=== PATIENT | female | born 1995 | race Caucasian/White ===

== ENCOUNTER 2023-06-05 10:17 | Outpatient (OUT) | payer OTHER, SELFPAY ==
--- NOTE | 2023-06-05 11:13 | XR_ITS ---
The [address] [address] Patient Name: ELIZABETH WOODS MRN: [id number] date: 1995 Sex: F Assigned Patient Location: [facility] Current Patient Location: [facility] Accession/Order Number: [id number] Exam Date: 06/05/2023 11:08 Report Date: 06/05/2023 12:12 At the request of: CARON CURTIS Procedure: XR chest 2V EXAM: XR chest 2V HISTORY: PRE OP EXAM COMPARISON: None. TECHNIQUE: PA and lateral views of the chest. FINDINGS: The cardiomediastinal silhouette is normal. No focal consolidation is identified. There is no pneumothorax. No pleural effusion is noted. The osseous structures are intact. XR/XR chest 2V IMPRESSION: No acute cardiopulmonary process. Electronically authenticated by: ERIC DE LA TORRE Date: 06/05/2023 12:12
[2023-06-05 11:45] LABS: SARS-CoV-2 Ag NEGATIVE (NEGATIVE)
--- NOTE | 2023-06-05 11:49 | P.GSHP_ITS ---
History of Present Illness History of Present Illness Chief complaint: dysmenorrhea, menorrhagia Narrative: Patient presents for preadmission testing. The patient reports heavy painful menstrual periods. She states this is been ongoing for several years, and she recently had a low hemoglobin due to bleeding. She has not received any blood transfer. Patient states she is a recovering drug addict and she does attend a methadone clinic for daily dosing, her dose is currently being tapered. She states for the past three days she has had a fever, chills, body aches, cough, and shortness of breath. She states she took a home COVID test which was negative. Review of Systems ROS Narrative REVIEW OF SYSTEMS: Negative except as stated in HPI, ten or more systems reviewed. ENT: No sore throat or epistaxis Cardiovascular: No edema, chest pain, palpitations, or activity intolerance Musculoskeletal: No joint pain or swelling Genitourinary: No dysuria or hematuria Neurological: No numbness, tingling, weakness, or headache Psychiatric: No mood changes PFSH PFSH Medical History (Updated 06/05/23 @ 11:54 by Shanti Franz NP) (06/02/23) (06/02/23) Surgical History (Updated 06/05/23 @ 10:45 by Shanti Franz NP) Family History (Updated 06/05/23 @ 10:45 by Shanti Franz NP) Other Family history of colon cancer Family history of diabetes mellitus Family history of heart disease Family history of hypertension Family history of myocardial infarction Family history of stroke Social History (Updated 06/05/23 @ 10:40 by Shanti Franz NP) Within the past year, how often did you have a drink containing alcohol: never Score interpretation: A score less than 3 is consistent with normal alcohol consumption. Do you use any of these nicotine containing products: vaping products Non-prescribed substance use: former substance user Previous occupational history: emergency room doctor/housekeeping Highest level of school completed/degree received: high school graduate Meds Home Medications and Allergies Home Medications Medication Instructions Recorded Confirmed Type methadone 5 mg/5 mL oral solution 29 mg PO DAILY 06/05/23 06/05/23 History Allergies Allergy/AdvReac Type Severity Reaction Status Date / Time bee venom protein (honey bee) Allergy throat Verified 06/05/23 10:37 swelling Penicillins Allergy Verified 06/05/23 10:37 Sulfa (Sulfonamide Allergy Verified 06/05/23 10:37 Antibiotics) Exam Narrative Exam Narrative: Constitutional: Awake, alert, comfortable, well-appearing, nontoxic, interactive, vital signs as charted Head: Normocephalic, atraumatic Eyes: Conjunctiva and lids normal to inspection, pupils normal ENT: Tympanic membranes pearly obando, nonerythematous, noninjected, naris patent, posterior oropharynx clear, oral mucosa moist Neck: Supple, normal appearance, normal range of motion, no meningeal signs, no lymphadenopathy Respiratory: No respiratory distress, breath sounds clear Cardiovascular: Regular rate and rhythm, Subtle systolic murmur noted. Abdomen: Nontender, normal bowel sounds, soft, no CVA tenderness Musculoskeletal: Normal gait, no swelling or edema Skin: No rashes or induration, no lesions, only visible skin inspected Neuro: No neurological deficits, normal sensation Psychiatric: Oriented ?3, normal affect Assessment and Plan Assessment and Plan (1) Cough: (2) Fever: Onset Date: 06/02/23 (3) Pelvic pain: (4) Menorrhagia: (5) Shortness of breath: Onset Date: 06/02/23 (6) Dysmenorrhea: (7) Dyspareunia: (8) Endometriosis: Plan DaVinci assisted laparoscopic hysterectomy, possible exploratory laparotomy, possible bilateral salpingo-oophorectomy, possible cystoscopy scheduled with Dr. Rivera 06/14/2023. COVID test and chest x-ray ordered today at preadmission testing, results pending. Patient refused lab draw today, she states she will come tomorrow as an outpatient. Rapid Urine drug screen to be obtained on surgery admission date. Patient was evaluated by cardiology in December 2022, but she was not cleared.
[2023-06-06 12:44] LABS: INR 1.02; Partial Thromboplastin Time 30.1 sec (22.3-36.2); Prothrombin Time 10.8 sec (9.0-11.6)
[2023-06-06 12:59] LABS: Alanine Aminotransferase 44 U/L (14-59); Albumin Globulin Ratio 1.1; Albumin Level 4.1 g/dL (3.4-5.0); Alkaline Phosphatase 107 U/L (46-116); Anion Gap 12.8; Aspartate Amino Transferase 31 U/L (15-37); BUN Creatinine Ratio 9.3; Bilirubin Direct 0.2 mg/dL (0.0-0.2); Bilirubin Total 0.7 mg/dL (0.2-1.0); Calcium 8.9 mg/dL (8.5-10.1); Chloride 102 mmol/L (98-107); Estimated GFR (African America >60 (>=60); Estimated GFR (Non-African Ame >60 (>=60); Globulin 3.7 g/dL; Glucose 100 mg/dL (74-106); Potassium 3.8 mmol/L (3.5-5.1); Sodium 139 mmol/L (136-145); Total Protein 7.8 g/dL (6.4-8.2)
[2023-06-06 15:28] LABS: SARS-CoV-2 NAA NOT DETECTED (NOT DETECTE)
== END 2023-06-05 10:18 | disposition home or self-care (01) ==
PROVIDERS: Visit Provider Obstetrics & Gynecology
DX: Z01.812 Encounter for preprocedural laboratory examination (principal); Z01.818 Encounter for other preprocedural examination; Z20.822 Contact with and (suspected) exposure to COVID-19; N94.10 Unspecified dyspareunia; N94.6 Dysmenorrhea, unspecified; N92.0 Excessive and frequent menstruation with regular cycle; R10.2 Pelvic and perineal pain; N80.9 Endometriosis, unspecified; F17.290 Nicotine dependence, other tobacco product, uncomplicated; R05.9 Cough, unspecified; R50.9 Fever, unspecified; R06.02 Shortness of breath
CPT/HCPCS: 71046; 80048; 80076; 85610; 85730; 86850; 86900; 86901; 87635; 87811; G0463

== ENCOUNTER 2023-06-15 09:01 | Day surgery (SDC) | payer OTHER, SELFPAY ==
[2023-06-05 11:36] VITALS: BP 108/61; PULSE 79; RESP 16; TEMP 36.6; O2SAT 99; BMI 23.7
--- NOTE | 2023-06-15 09:00 | ECG_ITS ---
The [facility] Test Date: 2023-06-15 Pat Name: ELIZABETH WOODS Department: Room: - Gender: Female Foxer: : 1995 Requested By: CARON CURTIS Order Number: [id number] Reading MD: IVY SANDRA Measurements Intervals [place] Rate: 43 P: 3 ID: 165 QRS: 72 QRSD: 99 T: 65 QT: 517 QTc: 438 Interpretive Statements SINUS BRADYCARDIA No previous ECG available for comparison Electronically Signed On 06-17-2023 14:01:41 EDT by IVY SANDRA
[2023-06-15 09:17] LABS: Basophils Percent Auto 0.5 % (0.2-2.0); Eosinophils Absolute Auto 0.1 10^3/uL (0.0-0.7); Eosinophils Percent Auto 2.7 % (0.9-7.0); Hematocrit 33.5 % (36.0-48.0); Hemoglobin 11.4 g/dL (12.0-16.0); Immature Granulocytes Abs Auto 0.01 10^3/uL (0.00-0.03); Immature Granulocytes Pct Auto 0.2 % (0.0-0.5); Lymphocytes Absolute Auto 1.4 10^3/uL (1.2-3.8); Lymphocytes Percent Auto 30.5 % (20.5-60.0); Mean Corpuscular Hemoglobin 29.2 pg (26.7-34.0); Mean Corpuscular Volume 85.9 fL (81.0-99.0); Mean Platelet Volume 8.8 fL (9.5-13.5); Monocytes Absolute Auto 0.5 10^3/uL (0.3-0.8); Monocytes Percent Auto 10.4 % (1.7-12.0); Neutrophils Absolute Auto 2.5 10^3/uL (1.4-6.5); Neutrophils Percent Auto 55.7 % (43.0-75.0); Platelet Count 165 10^3/uL (150-450); Red Cell Distribution Width 13.8 % (11.0-15.0); White Blood Count 4.4 10^3/uL (4.0-11.0)
[2023-06-15 09:33] LABS: Amphetamine Screen Urine NEGATIVE (NEGATIVE); Barbiturates Screen Urine NEGATIVE (NEGATIVE); Benzodiazepines Screen Urine NEGATIVE (NEGATIVE); Buprenorphine Screen Urine NEGATIVE (NEGATIVE); Cannabinoid Screen Urine POSITIVE (NEGATIVE); Cocaine Screen Urine NEGATIVE (NEGATIVE); Methadone Screen Urine POSITIVE (NEGATIVE); Methamphetamines Screen Urine NEGATIVE (NEGATIVE); Opiate Screen Urine NEGATIVE (NEGATIVE); Oxycodone Screen Urine NEGATIVE (NEGATIVE); Phencyclidine Screen Urine NEGATIVE (NEGATIVE); Tricyclic Antidepressant Urine NEGATIVE (NEGATIVE)
[2023-06-15 09:41] LABS: HCG Quantitative <1 mIU/mL
[2023-06-15 09:44] VITALS: BP 110/51; PULSE 48; RESP 16; TEMP 36.7; O2SAT 98; BMI 23.6
[2023-06-15] MEDS: LACTATED RINGER'S SOLUTION 1,000 ML 50 ML IV (09:55)
[2023-06-15] MEDS: METRONIDAZOLE/SODIUM CHLORIDE 500 MG/100 ML PREMIX IV (09:58)
[2023-06-15] MEDS: CIPROFLOXACIN IN 5 % DEXTROSE 400 MG/200 ML PIGGYBACK IV (11:22)
--- NOTE | 2023-06-15 13:26 | PC.NURSE ---
OR CANCELLED PER ANESTHESIA DUE TO BRADYCARDIA
== END 2023-06-15 13:27 | disposition home or self-care (01) ==
LOC: SURGOUT 09:02
PROVIDERS: Visit Provider Obstetrics & Gynecology
PROC: (CPT 840; principal; 2023-06-15 10:10)
DX: N94.10 Unspecified dyspareunia (principal); Z53.8 Procedure and treatment not carried out for other reasons; R00.1 Bradycardia, unspecified; N94.6 Dysmenorrhea, unspecified; R10.2 Pelvic and perineal pain; F17.290 Nicotine dependence, other tobacco product, uncomplicated; N92.0 Excessive and frequent menstruation with regular cycle; N80.9 Endometriosis, unspecified
CPT/HCPCS: 58571; 36415; 80307; 84702; 85025; 93005

== ENCOUNTER 2023-07-30 11:44 | Outpatient (OUT) | payer OTHER, SELFPAY ==
[2023-07-30 12:55] LABS: Basophils Percent Auto 0.2 % (0.2-2.0); Eosinophils Percent Auto 0.8 % (0.9-7.0); Hematocrit 35.6 % (36.0-48.0); Hemoglobin 12.3 g/dL (12.0-16.0); Immature Granulocytes Abs Auto 0.01 10^3/uL (0.00-0.03); Immature Granulocytes Pct Auto 0.2 % (0.0-0.5); Lymphocytes Absolute Auto 0.9 10^3/uL (1.2-3.8); Lymphocytes Percent Auto 17.9 % (20.5-60.0); Mean Corpuscular HGB Conc 34.6 g/dL (29.9-35.2); Mean Corpuscular Hemoglobin 30.6 pg (26.7-34.0); Mean Corpuscular Volume 88.6 fL (81.0-99.0); Mean Platelet Volume 9.9 fL (9.5-13.5); Monocytes Absolute Auto 0.3 10^3/uL (0.3-0.8); Monocytes Percent Auto 5.4 % (1.7-12.0); Neutrophils Absolute Auto 3.7 10^3/uL (1.4-6.5); Neutrophils Percent Auto 75.5 % (43.0-75.0); Platelet Count 168 10^3/uL (150-450); Red Blood Count 4.02 10^6/uL (4.20-5.40); Red Cell Distribution Width 12.5 % (11.0-15.0); White Blood Count 4.9 10^3/uL (4.0-11.0)
[2023-07-30 13:07] LABS: INR 0.99; Partial Thromboplastin Time 27.9 sec (22.3-36.2); Prothrombin Time 10.5 sec (9.0-11.6)
[2023-07-30 13:42] LABS: Alanine Aminotransferase 21 U/L (14-59); Albumin Globulin Ratio 1.2; Albumin Level 3.7 g/dL (3.4-5.0); Alkaline Phosphatase 60 U/L (46-116); Anion Gap 9.2; Aspartate Amino Transferase 15 U/L (15-37); BUN Creatinine Ratio 13.9; Bilirubin Direct 0.1 mg/dL (0.0-0.2); Bilirubin Total 0.5 mg/dL (0.2-1.0); Calcium 8.4 mg/dL (8.5-10.1); Carbon Dioxide 28.6 mmol/L (21.0-32.0); Chloride 104 mmol/L (98-107); Estimated GFR (African America >60 (>=60); Estimated GFR (Non-African Ame >60 (>=60); Globulin 3.1 g/dL; Glucose 109 mg/dL (74-106); Potassium 3.8 mmol/L (3.5-5.1); Sodium 138 mmol/L (136-145); Total Protein 6.8 g/dL (6.4-8.2)
== END 2023-07-30 11:45 | disposition home or self-care (01) ==
LOC: PST 11:45
PROVIDERS: Visit Provider Obstetrics & Gynecology
DX: Z01.818 Encounter for other preprocedural examination (principal); Z01.812 Encounter for preprocedural laboratory examination; Z88.0 Allergy status to penicillin; Z88.2 Allergy status to sulfonamides; N94.10 Unspecified dyspareunia; N94.6 Dysmenorrhea, unspecified; N80.9 Endometriosis, unspecified; N92.0 Excessive and frequent menstruation with regular cycle; R10.2 Pelvic and perineal pain
CPT/HCPCS: 36415; 80048; 80076; 85025; 85610; 85730; 86850; 86900; 86901

== ENCOUNTER 2023-08-08 06:03 | Day surgery (SDC) | payer OTHER, SELFPAY ==
[2023-07-30 12:11] VITALS: BP 113/67; PULSE 70; RESP 14; TEMP 36.3; O2SAT 99; BMI 23.4
[2023-08-08 06:26] LABS: Basophils Percent Auto 0.4 % (0.2-2.0); Eosinophils Absolute Auto 0.1 10^3/uL (0.0-0.7); Eosinophils Percent Auto 1.8 % (0.9-7.0); Hematocrit 38.2 % (36.0-48.0); Hemoglobin 12.7 g/dL (12.0-16.0); Immature Granulocytes Abs Auto 0.01 10^3/uL (0.00-0.03); Immature Granulocytes Pct Auto 0.2 % (0.0-0.5); Lymphocytes Absolute Auto 1.7 10^3/uL (1.2-3.8); Lymphocytes Percent Auto 31.4 % (20.5-60.0); Mean Corpuscular HGB Conc 33.2 g/dL (29.9-35.2); Mean Corpuscular Hemoglobin 29.7 pg (26.7-34.0); Mean Corpuscular Volume 89.5 fL (81.0-99.0); Mean Platelet Volume 9.7 fL (9.5-13.5); Monocytes Absolute Auto 0.5 10^3/uL (0.3-0.8); Neutrophils Absolute Auto 3.1 10^3/uL (1.4-6.5); Neutrophils Percent Auto 57.2 % (43.0-75.0); Platelet Count 179 10^3/uL (150-450); Red Blood Count 4.27 10^6/uL (4.20-5.40); Red Cell Distribution Width 12.4 % (11.0-15.0); White Blood Count 5.4 10^3/uL (4.0-11.0)
[2023-08-08 06:44] VITALS: BP 107/65; PULSE 51; RESP 16; TEMP 36.2; O2SAT 100
[2023-08-08 06:45] LABS: HCG Quantitative <1 mIU/mL
[2023-08-08 06:48] LABS: Amphetamine Screen Urine POSITIVE (NEGATIVE); Barbiturates Screen Urine NEGATIVE (NEGATIVE); Benzodiazepines Screen Urine NEGATIVE (NEGATIVE); Cannabinoid Screen Urine NEGATIVE (NEGATIVE); Cocaine Screen Urine NEGATIVE (NEGATIVE); Methadone Screen Urine POSITIVE (NEGATIVE); Methamphetamines Screen Urine POSITIVE (NEGATIVE); Opiate Screen Urine NEGATIVE (NEGATIVE); Phencyclidine Screen Urine NEGATIVE (NEGATIVE); Tricyclic Antidepressant Urine NEGATIVE (NEGATIVE)
[2023-08-08 06:49] LABS: Buprenorphine Screen Urine NEGATIVE (NEGATIVE); Oxycodone Screen Urine NEGATIVE (NEGATIVE)
--- NOTE | 2023-08-08 07:26 | PC.NURSE ---
Drug screen positive and Dr. Rivera called and anesthesia aware; no decision made on surgical procedure
--- NOTE | 2023-08-08 07:32 | PC.NURSE ---
Procedure oficially cancelled by Dr. Campos due to positive drug screen
== END 2023-08-08 07:32 ==
PROVIDERS: Visit Provider Obstetrics & Gynecology
DX: Z53.8 Procedure and treatment not carried out for other reasons (principal); N94.10 Unspecified dyspareunia; N94.6 Dysmenorrhea, unspecified; N92.0 Excessive and frequent menstruation with regular cycle; R10.2 Pelvic and perineal pain
CPT/HCPCS: 36415; 80307; 84702; 85025

== ENCOUNTER 2025-08-24 15:00 | Outpatient (OUT) | payer OTHER, SELFPAY ==
--- OUTSIDE RECORDS SUMMARY | 2025-08-24 14:10 | XMS_ITS | Encounter Summary ---
Author Organization [facility] Address [address] [place] [address] Care Team Providers Care Choir Director Name Role Phone Unavailable Primary Care Provider Unavailabl e Reason for Visit * ReasonCommentsRoutine Visit Encounter Details DateTypeDepartmentCare Team (Latest Contact Info)Mgpluwawgjn29/27/2025 2:10 PM EDTRoutine [facility] [address] [place] [address] Swapnil Rivera DO [address] [place] [address] Second trimester ([facility]); 13 weeks gestation of ([facility]) Social History Tobacco UseTypesPacks/DayYears UsedDateSmoking Tobacco: NeverSmokeless Tobacco: NeverAlcohol UseStandard Drinks/WeekCommentsNever0 (1 standard drink = 0.6 oz pure alcohol)Estimated Date of VyknhkbdQtcmwprqVeu15/03/2026Based on UltrasoundSex and Gender InformationValueDate RecordedSex Assigned at BirthNot on fileLegal GimZvuous47/15/2023 8:13 PM EDTGender IdentityNot on fileSexual OrientationNot on filedocumented as of this encounter Last Filed Vital Signs Vital SignReadingTime TakenCommentsBlood Svuejdmb31/5408/24/2025 2:29 PM EDT Pulse--Temperature--Respiratory Rate--Oxygen Saturation--Inhaled Oxygen Concentration--Nchggz96.5 kg (126 lb 12.8 oz)08/24/2025 2:29 PM EDTHeight--Body Mass Index24.7609 1:46 PM EDTdocumented in this encounter Plan of Treatment DateTypeDepartmentCare Team (Latest Contact Info)Kkhhhosiduc04/25/2025 1:30 PM ESTRoutine [facility] [address] [place] [address] Joanne Soto PA [address] [place] [address] documented as of this encounter Procedures Procedure NamePriorityDate/TimeAssociated DiagnosisCommentsPOCT URINALYSIS DCTJTMQXTpcemsi43/27/2025 2:33 PM EDT 13 weeks gestation of ([facility] documented in this encounter Results * (ABNORMAL) POCT urinalysis dipstick manually resulted (08/24/2025 2:33 PM EDT) ComponentValueRef RangeTest MethodAnalysis TimePerformed AtPathologist SignatureColor, UAYellowClarity, UAClearGlucose, UANegativeNegative - 2000(110) ++++ mg/dLBilirubin, UANegativeNegative - 4(70) +++ mg/dLKetones, UA NegativeNegative - 160(16) ++++ mg/dLSpec Grav, UA1.0301 - 1.03Blood, UA NegativeNegative - 50 Shaun/mcLpH, UA5.55 - 9Protein, UATraceNegative - 2000(20) ++++ mg/dLUrobilinogen, UA>=8.00.2 - 12 mg/dLLeukocytes, UANegativeNegative - 500+++ Stefany/mcLNitrite, UANegativeNegative - PositiveSpecimen (Source) Anatomical Location / LateralityCollection Method / VolumeCollection Time Received WpzuEgpjp75/27/2025 2:33 PM EDT Narrative Authorizing ProviderResult TypeResult StatusCorey Miguel DOPOINT OF CARE TEST ENTER/EDIT ORDERABLESFinal Result documented in this encounter Visit Diagnoses Diagnosis Second trimester ([facility]) state, incidental 13 weeks gestation of ([facility]) documented in this encounter
--- OUTSIDE RECORDS SUMMARY | 2025-08-24 15:06 | XMS_ITS | Clinical Summary ---
Author Organization [facility] Address [address] [place] [address] Phone Care Team Providers Care Metal Welder Name Role Phone Joanne López APRN-TIBURCIO Primary Care Provid er Allergies Active AllergyReactionsCriticalityNoted DateCommentsBee Venom Protein (Honey Bee)CfqkchylellQdea41/30/2024enicillinsHeadache,Nausea/zewccund06/30/2024 SulfamethoxazoleHeadache,Rash,Nausea/dhchbxvhAmp15/30/2024 Medications MedicationSigDispense QuantityRefillsLast FilledStart DateEnd DateStatus methadone (Dolophine) 10 mg/mL solution Take by mouth.Active albuterol 90 mcg/actuation aerosol powdr breath activated inhaler Inhale 2 puffs every 4 hours.Active Active Problems ProblemNoted DateDiagnosed DateChest pain11/27/2023ipolar hnzxbkwesf12/30/2024 Anemia affecting eydpxveqi70/30/2024epression affecting , antepartum 11/27/2023epression, major, recurrent, slrzvzal95/30/2024History of heroin abuse11/27/2023Iron deficiency haqkwl5211/27/2023Low back pain11/27/2023Opioid use disorder, moderate, in early remission, on maintenance therapy, dependence 11/27/2023ongenital heart disease, maternal, ydqegixtpu02/30/2024ongenital pulmonary valve qaxczio7811/27/2023onstipation during in third cvasikhtc37/30/9414Ltephgljhhei44/30/2024Generalized anxiety ncrodcjt90/30/2024 Posttraumatic stress oeulsofd97/30/2024rior with congenital cardiac defect, ctzsdamugv55/30/2024ulmonic valve ivoxfoq2111/27/20232391Rzyaytqvd81/30/2024 Shortness of owfuqk9111/27/2023Substance abuse affecting , antepartum 11/27/2023Thrombocytopenia complicating kakmteiwq37/30/2024Tobacco smoking affecting ajjfsnzfw71/30/2024Light tobacco smoker <10 cigarettes per day 11/27/2023ECG yfgbkabs83/30/2024ack pain11/27/2023hronotropic incompetence 11/27/2023Encounter for IUD cppssxsam51/30/2024 Encounters DateTypeDepartmentCare AmgzCeakrywhfal43/07/2025Orders Only [facility] [address] [place] [address] Canelo Allison DO from Last 3 Months Immunizations ImmunizationAdministration DatesNext DueHepatitis B vaccine, 19 yrs and under (RECOMBIVAX, ENGERIX)05/14/2001,09/18/2000,06/08/1999Tdap vaccine, age 7 year and older (BOOSTRIX, ADACEL)01/21/2019,05/26/2017 Family History Medical HistoryRelationNameCommentsHypertensionFathercardiac abnormalityFather HypertensionMothercardiac abnormalityMotherRelationNameStatusCommentsFather Mother Social History Tobacco UseTypesPacks/DayYears UsedDateSmoking Tobacco: Every DayCigarettes Alcohol UseStandard Drinks/WeekCommentsNever0 (1 standard drink = 0.6 oz pure alcohol)CommentsUnknownSex and Gender InformationValueDate RecordedSex Assigned at BirthNot on fileLegal OcsLbpivv27/26/2022 7:39 AM ESTGender Identity Not on fileSexual OrientationNot on file Last Filed Vital Signs Vital SignReadingTime TakenCommentsBlood Udblfvdu649/7003 10:15 AM EDT Aspta2107 10:15 AM EDTTemperature--Respiratory Rate--Oxygen Saturation-- Inhaled Oxygen Concentration--Idnaeu58.1 kg (128 lb)01/15/2023 10:15 AM EDT Ytptre318.9 cm (5' 1 )01/15/2023 10:15 AM EDTBody Mass Index24.19001/15/2023 10:15 AM EDT Plan of Treatment Health MaintenanceDue DateLast DoneCommentsLipid Panel1993Yearly Adult Ynbyyfhr1993MMR Vaccines (1 of 1 - Standard series)1994Pneumococcal Vaccine: Pediatrics and At-Risk Adult Patients (1 of 2 - PCV)2012 HPV/Xhslgh6408/29/2014HPV Vaccines (1 - 3-dose standard series)2020Cervical Cancer Ljvyzgmaa15/21/2022Pap SmearInfluenza Vaccine (#1) 5COVID-19 Vaccine (2 - season)/1DTaP/Tdap/Td Vaccines (3 - Td or Tdap), 05/26/2017Zoster Vaccines (1 of 2)2043Hepatitis B YjnhwfbwOlnmztlrf53/17/2001, 09/18/2000, 06/08/1999HIV TxdvlwtogXjisywpei01/29/2022, 05/04/2021, 12/13/2020, Additional history exists Hepatitis C IxvzdecefUoqgsvzwu35/29/2022, 05/04/2021, 02/26/2019, Additional history existsHIB VaccinesAged OutNo longer eligible based on patient's age to complete this topicHepatitis A VaccinesAged OutNo longer eligible based on patient's age to complete this topicIPV VaccinesAged OutNo longer eligible based on patient's age to complete this topicMeningococcal VaccineAged OutNo longer eligible based on patient's age to complete this topicRotavirus VaccinesAged Out No longer eligible based on patient's age to complete this topic Procedures Procedure NamePriorityDate/TimeAssociated DiagnosisCommentsNON- HIE BHCG QUANT Gbtnzll6307/05/2025 3:25 PM EDT NON- HIE IWASIdaphqn70/07/2025 3:25 PM EDT NON-UH HIE VBFXzeschr80/07/2025 3:25 PM EDT NON-UH HIE CBC W/ AUTO DGCFPvgisog75/07/2025 3:25 PM EDT NON-UH HIE UA WITH CULT SLBBKctdedu26/07/2025 3:25 PM EDT HEPATITIS PANEL, ZVQZKSvgonsz69/29/2022 10:43 AM EDT HIV 1/2 ANTIGEN/ANTIBODY SCREEN WIH REFLEX TO LJZPVMUZAISWGypsbwt70/29/2022 10:43 AM EDT CONVERTED BUSINESS MANAGEMENT ANALYST PBNILVOXArxirwg81/21/2019 12:00 AM EDT from Last 3 Months or Most Recently Relevant to Health Maintenance Results * NON-[facility] HIE UA WITH CULT RFLX (07/05/2025 3:25 PM EDT)ComponentValueRef Range Test MethodAnalysis TimePerformed AtPathologist SignatureNON- HIE UA Spec DescClean CatchOUR LAD[facility] HIE UA ColorLight-Yellow YellowKETTERING HEALTH DAYTONComment:Microscopic readings are only performed on those samples that meet specific criteria set forth by [facility].NON-[facility] HIE UA ClarityClearClearOUR LADY OF [facility] H[facility] UA Spec Grav1.0251.005 - 1.030[facility] UA pH6.55.0 - 9.0[facility] UA ProteinNegativeNegative mg/dLOUR LADY OF [facility] UA Glucose NegativeNegative mg/dLOUR LADY OF [facility] UA KetonesNegative Negative mg/dLOUR LADY OF [facility] UA BiliNegativeNegative mg/dLOUR LADY OF [facility] UA BloodNegativeNegative mg/dL [facility] UA NitriteNegativeNegative mg/dLOUR LADY OF [facility] UA UrobilinogenNegativeNegative mg/dLOUR LADY OF [facility] UA Leuk EstNegativeNegative CD:[id number] HOSPITALS BEACHWOOD MEDICAL CENTERpecimen (Source)Anatomical Location / Laterality Collection Method / VolumeCollection TimeReceived TimeSOUTHWESTERN [facility]ICAL [facility] Lab- Urine 07/05/2025 3:25 PM EDT Narrative Authorizing ProviderResult TypeResult StatusCanelo PASCAL BLOOD ORDERABLES Final ResultPerforming OrganizationAddressCity/State/ZIP CodePhone Number [facility] [address] [place] [address], [place] * (ABNORMAL) NON- HIE CBC w/ Auto Diff (07/05/2025 3:25 PM EDT)ComponentValue Ref RangeTest MethodAnalysis TimePerformed AtPathologist SignatureQUAIL RUN BEHAVIORAL HEALTH-NEW [facility] BEHAVIORAL HEALTH INSTITUTE AT LAS VEGASE WBC5.34.0 - 11.0 E9/LF[facility]ENTERE RBC4.2(L)4.3 - 5.9 E12/LFHOLZER HEALTH SYSTEM HIE HGB12.912.0 - 16.0 gm/dLOHIOHEALTH SHELBY HOSPITALE HCT36.134.0 - 46.0 %[facility] HIE RDW13.410.9 - 14.2 %[facility] HIE MCH30.5 27.0 - 34.0 [facility] HIE MCHC35.831.4 - 36.0 gm/dL [facility] HIE MCV85.480.0 - 100.0 fLOUR LADY OF [facility] HIE MPV7.76.4 - 10.8 [facility] Comment:Peripheral smear review performed.NON- HIE PRZYLAWE647.0150.0 - 500.0 E9/LFWHITE HOSPITALComment:Peripheral smear review performed.NON-UH HIE NEUTRO AUTO70.436.0 - 75.0 %[facility] NON- HIE LYMPH AUTO18.514.0 - 50.0 %[facility] HIE MONO AUTO9.54.0 - 14.0 %[facility] HIE EOS AUTO1.10.0 - 8.0 %[facility] HIE BASOPHIL AUTO0.50.0 - 2.0 %[facility] HIE NEUTRO ABSOLUTE3.72.0 - 7.5 E9/LFHOLZER [facility]ALTH SYSTEM HIE LYMPH ABSOLUTE1.01.0 - 4.0 E9/LFH[facility] HIE MONO ABSOLUTE0.50.2 - 1.0 E9/LFTRUMBULL [facility]ORIAL [facility] HIE EOS ABSOLUTE0.10.0 - 0.5 E9/LFH[facility]ZER [facility]ALTH SYSTEM HIE BASOPHIL ABSOLUTE0.00.0 - 0.2 E9/LFTOGUS VA MEDICAL CENTERpecimen (Source) Anatomical Location / LateralityCollection Method / VolumeCollection Time Received TimeSOUTHWESTERN MEDICAL [facility] Lab- Blood07/05/2025 3:25 PM EDT Narrative Authorizing ProviderResult TypeResult StatusCanelo DELARSOA BLOOD ORDERABLES Final ResultPerforming OrganizationAddressCity/State/ZIP CodePhone Number [facility] [address] [place] [address], * (ABNORMAL) NON- HIE BMP (07/05/2025 3:25 PM EDT)ComponentValueRef RangeTest MethodAnalysis TimePerformed AtPathologist SignatureFRANCISCAN HEALTH MOORESVILLEE GLUCOSE LGA2001 - 199 mg/dLOUR LADY OF [facility] HIE CVW697 - 21 mg/dLOUR [facility] OF [facility] HIE CREATININE0.70.5 - 1.3 mg/dLOHIOHEALTH SHELBY HOSPITALE BUN/CREAT XSHVP6615 - 20 No UnitsKETTERING HEALTH DAYTON [address] HIE CALCIUM LVL9.58.9 - 11.1 mg/dLOUR LADY OF [facility] HIE SODIUM DYM048(L)135 - 145 mmol/LFHOLZER HEALTH SYSTEM HIE POTASSIUM LVL4.33.5 - 5.3 mmol/LFHOLZER HEALTH SYSTEM HIE CHLORIDE 758022 - 111 mmol/LFHOLZER HEALTH SYSTEM HIE WR29617 - 31 mmol/L [facility] AGAP96 - 16 mEq/LF[facility] CENTERpecimen (Source)Anatomical Location / LateralityCollection Method / VolumeCollection TimeReceived TimeSOUTHWESTERN [facility] Lab- Blood07/05/2025 3:25 PM EDT Narrative Authorizing ProviderResult TypeResult StatusCanelo PASCAL BLOOD ORDERABLES Final ResultPerforming OrganizationAddressCity/State/ZIP CodePhone Number [address] [address], [place] * NON-[facility] HIE eGFR (07/05/2025 3:25 PM EDT)ComponentValueRef RangeTest Method Analysis TimePerformed AtPathologist SignatureNON- HIE AALC819>=59 mL/min/1.73 x0JDEZZBUNIVERSITY HOSPITALS BEACHWOOD MEDICAL CENTERpecimen (Source)Anatomical Location / LateralityCollection Method / VolumeCollection TimeReceived TimeSOUTHWESTERN [facility] Lab Blood07/05/2025 3:25 PM EDT Narrative Authorizing ProviderResult TypeResult StatusCanelo PASCAL BLOOD ORDERABLES Final ResultPerforming OrganizationAddressCity/State/ZIP CodePhone Number [address] [address], [place] * (ABNORMAL) NON-UH HIE BhCG Quant (07/05/2025 3:25 PM EDT)ComponentValueRef RangeTest MethodAnalysis TimePerformed AtPathologist SignatureNON- HIE BETA HCG QNT79,656(H)1 - 3 mIU/mLKETTERING HEALTH DAYTONComment:'F NON < 1 - 3'' 0.2 - 1 WEEK = 5 TO 50'' 1 - 2 WEEKS = 50 - 500'' 2 - 3 WEEKS = 100 - 5000'' 3 - 4 WEEKS = 500 - 39243'' 4 - 5 WEEKS = 1000 - 64242'' 5 - 6 WEEKS = 44795 - 529061'' 6 - 8 WEEKS = 52053 - 880668'' 8 - 12 WEEKS = 66177 - 595849'Specimen (Source)Anatomical Location / LateralityCollection Method / VolumeCollection TimeReceived TimeSOUTHWESTERN MEDICAL [facility] Lab- Blood07/05/2025 3:25 PM EDT Narrative Authorizing ProviderResult TypeResult StatusCanelo PASCAL BLOOD ORDERABLES Final ResultPerforming OrganizationAddressCity/State/ZIP CodePhone Number [facility] [address] [place] [address], * Hepatitis Panel, Acute (01/24/2022 10:43 AM EDT)ComponentValueRef RangeTest MethodAnalysis TimePerformed AtPathologist SignatureHep A IgMNONREACTIVE NONREACTIVELEHIGH VALLEY HOSPITAL - SCHUYLKILL [facility] LABComment: Biotin interference may cause falsely decreased results. Patients taking a Biotin dose of up to 5 mg/day should refrain from taking Biotin for 24 hours before sample collection. Providers may contact their local laboratory for further information. Hep B Core IgMNONREACTIVENONUNIVERSITY OF IOWA HOSPITALS AND CLINICS LABComment: Results from patients taking biotin supplements or receiving high-dose biotin therapy should be interpreted with caution due to possible interference with this test. Providers may contact their local laboratory for further information. Hepatitis B Surface AgNONREACTIVENONUNIVERSITY OF IOWA HOSPITALS AND CLINICS LABComment: Biotin interference may cause falsely decreased results. Patients taking a Biotin dose of up to 5 mg/day should refrain from taking Biotin for 24 hours before sample collection. Providers may contact their local laboratory for further information. Hepatitis C AbNONREACTIVENONRECAROMONT HEALTH LABComment: Results from patients taking biotin supplements or receiving high-dose biotin therapy should be interpreted with caution due to possible interference with this test. Providers may contact their local laboratory for further information. Specimen (Source)Anatomical Location / LateralityCollection Method / Volume Collection TimeReceived Time01/24/2022 10:43 AM EDT01/24/2022 8:29 PM EDT Narrative Authorizing ProviderResult TypeResult StatusTomer Jeter DISPATCHER CLERK-CNPLAB BLOOD ORDERABLESFinal ResultPerforming OrganizationAddressCity/State/ZIP CodePhone Number [facility] [address] [facility] [id number] [place] [address] * HIV 1/2 Antigen/Antibody Screen with Reflex to Confirmation (01/24/2022 10:43 AM EDT)ComponentValueRef RangeTest MethodAnalysis TimePerformed AtPathologist SignatureHIV 1 and 2 ScreenNONREACTIVENONUNIVERSITY OF IOWA HOSPITALS AND CLINICS LABComment: HIV Ag/Ab screen is performed using the Siemens InvestLab HIV Ag/Ab Combo assay which detects the presence of HIV p24 antigen as well as antibodies to HIV-1 (Group M and O) and HIV-2. . No laboratory evidence of HIV infection. If acute HIV infection is suspected, consider testing for HIV RNA by PCR (viral load). Specimen (Source)Anatomical Location / LateralityCollection Method / Volume Collection TimeReceived Time01/24/2022 10:43 AM EDT01/24/2022 2:34 PM EDT Narrative Authorizing ProviderResult TypeResult StatusVincent E Hawaen DISPATCHER CLERK-CNPLAB BLOOD ORDERABLESFinal ResultPerforming OrganizationAddressCity/State/ZIP CodePhone Number [facility] [id number] [place] [address] * CONVERTED BUSINESS MANAGEMENT ANALYST CYTOLOGY (03/18/2019 12:00 AM EDT)ComponentValueRef RangeTest MethodAnalysis TimePerformed AtPathologist SignaturePathology Report ? Date of Procedure: ??03/18/2019 ? Pathologist: [facility], Cytology Date Reported: 03/28/2019 Date Received: ??03/18/2019 Submitting Physician: COLTON REEVES M.D ? FINAL CYTOLOGICAL INTERPRETATION A. ??THINPREP PAP CERVICAL Reflex - Ascus only: ? Specimen adequacy: ? SATISFACTORY FOR EVALUATION. ? Quality Indicator: Endocervical/transformation zone component is present. ? Quality Indicator: Partially obscuring blood. ? General Categorization: ? NEGATIVE FOR INTRAEPITHELIAL LESION OR MALIGNANCY. ? Descriptive Interpretation: ? SHIFT IN VAGINAL HOMERO SUGGESTIVE OF BACTERIAL VAGINOSIS. ? Ancillary Testing: ? Specimen does not meet the requisition-stated criteria for HPV testing. See Pap test interpretation above. ? This specimen has been analyzed by the curated.byp Imaging System ([employer] an automated imaging and review system, which assists the laboratory in evaluating cells on ThinPrep Pap tests. Following automated imaging, selected cutler from every slide were reviewed by a autism specialist and/or pathologist. Electronically Signed Out By [facility], Cytology//NKM By the signature on this report, the individual or group listed as making the Final Interpretation/Diagnosis certifies that they have reviewed this case. Educational Note: Cervical cytology is a screening procedure primarily for squamous cancers and precursors and has associated false-negative and false-positive results as evidenced by published data. ??Your patient's test should be interpreted in this context, together with patient's history and clinical findings. ??Regular sampling and follow-up of unexplained clinical signs and symptoms are recommended to minimize false negative results. Clinical History Date of Last Menstrual Period: ? PPV Other Clinical Conditions: HPV ??Reflex for ASC-US only - Exclude HPV Genotype Source of Specimen A: THINPREP PAP CERVICAL Reflex - Ascus only [facility] Department of Pathology [id number] [place] [address] COPATHCONVERTED FINAL DIAGNOSISA. ??THINPREP PAP CERVICAL Reflex - Ascus only: ? Specimen adequacy: ? SATISFACTORY FOR EVALUATION. ? Quality Indicator: Endocervical/transformation zone component is present. ? Quality Indicator: Partially obscuring blood. ? General Categorization: ? NEGATIVE FOR INTRAEPITHELIAL LESION OR MALIGNANCY. ? Descriptive Interpretation: ? SHIFT IN VAGINAL HOMERO SUGGESTIVE OF BACTERIAL VAGINOSIS. ? Ancillary Testing: ? Specimen does not meet the requisition-stated criteria for HPV testing. See Pap test interpretation above. ? [facility] COPATHCONVERTED DIAGNOSIS COMMENTThis specimen has been analyzed by the PandabusPrep Imaging System ([employer] an automated imaging and review system, which assists the laboratory in evaluating cells on ThinPrep Pap tests. Following automated imaging, selected cutler from every slide were reviewed by a autism specialist and/or pathologist. [facility] [address] COPATHCONVERTED FINAL REPORT PDF LINK TO COPY AND PASTE \[id number] VALLEY [facility] COPATHSpecimen (Source) Anatomical Location / LateralityCollection Method / VolumeCollection Time Received TimeTPP CERVICAL - Exclude Ypvqgvsc98 1:33 PM EDT Narrative Authorizing ProviderResult TypeResult StatusLugenesis Reeves MDLAB CYTOLOGY ORDERABLESFinal ResultPerforming OrganizationAddressCity/State/ZIP CodePhone Number [facility] [address] [address] COPATH [address] [place] [address] from Last 3 Months or Most Recently Relevant to Health Maintenance Insurance Care Teams Team MemberRelationshipSpecialtyStart DateEnd Date Joanne López, DISPATCHER CLERK-RAILROAD CAR CHECKER PCP - General01/15/23
--- OUTSIDE RECORDS SUMMARY | 2025-08-24 15:06 | XMS_ITS | Clinical Summary ---
Author Organization [facility] Address [facility], [address] [place] [address] Care Team Providers Care Offset Plate Preparation Supervisor Name Role Phone Unavailable Primary Care Provider Unavailabl e Allergies Active AllergyReactionsCriticalityNoted DateCommentsBee VenomRashMedium 01/12/2017Clindamycin/Rlzoujwztz22/06/6727Qwzqnwklcr17/31/2018Penicillin GOther (See Comments)02/04/2016Sulfa AntibioticsOther (See Comments)02/04/2016 Medications MedicationSigDispense QuantityRefillsLast FilledStart DateEnd DateStatus MV-Min-Fe Fum-FA-DHA ( 1 PO) Take by mouthActive azithromycin (ZITHROMAX) 250 MG tablet Indications:Bilateral otitis media, unspecified chronicity, unspecified otitis media typeTake 2 tabs (500 mg) on Day 1, and take 1 tab (250 mg) on days 2 through 5. 1 packet 02/09/2017Active ibuprofen (ADVIL;MOTRIN) 600 MG tablet Take 1 tablet by mouth every 8 hours as needed for Pain 30 tablet 11/06/2017Active ondansetron (ZOFRAN ODT) 4 MG disintegrating tablet Take 1 tablet by mouth every 8 hours as needed for Nausea 20 tablet 11/06/2017Active QUEtiapine (SEROQUEL) 50 MG tablet Take 50 mg by mouth 2 times dailyActive PARoxetine (PAXIL) 40 MG tablet Take 40 mg by mouth every morningActive baclofen (LIORESAL) 20 MG tablet Take 40 mg by mouth 3 times dailyActive dicyclomine (BENTYL) 10 MG capsule Take 10 mg by mouth 4 times daily (before meals and nightly)Active ketorolac (TORADOL) 10 MG tablet Take 1 tablet by mouth every 6 hours as needed for Pain 20 tablet 06/05/2019Active lidocaine viscous hcl (XYLOCAINE) 2 % SOLN solution Take 15 mLs by mouth as needed for Irritation 100 mL 06/05/2019Active Active Problems No known active problems Social History Tobacco UseTypesPacks/DayYears UsedDateSmoking Tobacco: Every DayCigarettes Smokeless Tobacco: Never Tobacco Cessation:Ready to Q uit: No Alcohol UseStandard Drinks/WeekCommentsNo0 (1 standard drink = 0.6 oz pure alcohol)CommentsNoSex and Gender InformationValueDate RecordedSex Assigned at BirthNot on fileLegal JyfQtqqco02/12/2013 3:28 AM ESTGender Identity Not on fileSexual OrientationNot on file Last Filed Vital Signs Vital SignReadingTime TakenCommentsBlood Kuchnfzn080/6008 10:30 AM EDT Ljpdf225106/05/2019 10:30 AM QWOLfsloawapne49.9 ??C (98.5 ??F)06/05/2019 10:30 AM EDTRespiratory Bjqs9670 10:30 AM EDTOxygen Hchyqdvieb23%06/05/2019 10:30 AM EDTInhaled Oxygen Concentration--Vvdgve49.7 kg (125 lb)06/05/2019 10:30 AM QJEIqenbj693.5 cm (5' 2 )06/05/2019 10:30 AM EDTBody Mass Index22.8606/05/2019 10:30 AM EDT Plan of Treatment Not on file Insurance * Guarantor: [employer] TypeRelation to PatientDate of PhoneBilling AddressLabette Health/ZaaytxChmd[address] [phone]
--- OUTSIDE RECORDS SUMMARY | 2025-08-24 15:06 | XMS_ITS | Encounter Summary ---
Author Organization [facility] Address [address] [place] [address] Care Team Providers Care Mushroom Spawn Maker Name Role Phone Unavailable Primary Care Provider Unavailabl e Encounter Details DateTypeDepartmentCare Team (Latest Contact Info)Gopyyvrzfiv36/27/2025amboo flowsheet NOMNancy FRANCIS [address] [place] [address] Swapnil Rivera DO [address] [facility] [facility] [address] Dash Sanchez, [facility] Social History Tobacco UseTypesPacks/DayYears UsedDateSmoking Tobacco: NeverSmokeless Tobacco: NeverAlcohol UseStandard Drinks/WeekCommentsNever0 (1 standard drink = 0.6 oz pure alcohol)Estimated Date of TpsraqimZcjqrgisCsa22/03/2026ased on UltrasoundSex and Gender InformationValueDate RecordedSex Assigned at BirthNot on fileLegal QjyItmtnp30/15/2023 8:13 PM EDTGender IdentityNot on fileSexual OrientationNot on filedocumented as of this encounter Plan of Treatment DateTypeDepartmentCare Team (Latest Contact Info)Rvofikgnxzy08/25/2025 1:30 PM ESTRoutine NOMNancy FRANCIS [address] [place] [address] Joanne Soto PA [address] [place], [facility] documented as of this encounter Visit Diagnoses Not on filedocumented in this encounter
--- OUTSIDE RECORDS SUMMARY | 2025-08-24 15:06 | XMS_ITS | Clinical Summary ---
Author Organization [facility] Address [address] [place] [id number] Care Team Providers Care Comparative Sociology Professor Name Role Phone Unavailable Primary Care Provider Unavailabl e Allergies Active AllergyReactionsCriticalityNoted LlcbKdjslekwVmebabppjjTbffnph36/08/2016 Sulfa (Sulfonamide Antibiotics)Hvoychs4902/04/2016 Medications No known medications Active Problems No known active problems Family History Medical HistoryRelationCommentsHeartFatherMI around age 50HypertensionFather HypertensionMotherRelationStatusCommentsFatherMother Social History Tobacco UseTypesPacks/DayYears UsedDateSmoking Tobacco: Every DayCigarettes0.511 Alcohol UseStandard Drinks/WeekCommentsYes6 (1 standard drink = 0.6 oz pure alcohol)[facility] UtilitiesAnswerDate RecordedIn the past 12 months has the [employer], gas, oil, or water [place] threatened to shut off services in your home?No 12/14/2023Social Connection and Isolation PanelAnswerDate RecordedIn a typical week, how many times do you talk on the phone with family, friends, or neighbors?More than three times a week12/14/2023How often do you get together with friends or relatives?More than three times a week12/14/2023How often do you attend mu-ism or mormonism services?Patient ybgdewwy25/16/2024Do you belong to any clubs or organizations such as mu-ism groups, unions, fraternal or athletic groups, or school groups?No12/14/2023How often do you attend meetings of the clubs or organizations you belong to?Patient hkpokfrj47/16/2024Are you , , , , never , or living with a partner?Patient qxvfesie29/16/2024UDIT-CAnswerDate RecordedQ1: How often do you have a drink containing alcohol?Patient scfgopal43/16/2024Q2: How many drinks containing alcohol do you have on a typical day when you are drinking?Patient does not drink12/14/2023Q3: How often do you have six or more drinks on one occasion? Patient ldvgtsku27/16/2024Overall Financial Resource Strain (CARDIA)AnswerDate RecordedHow hard is it for you to pay for the very basics like food, housing, medical care, and heating?Patient zqqocfuq62/16/2024[facility] [place] [facility] - Occupational Stress QuestionnaireAnswerDate RecordedDo you feel stress - tense, restless, nervous, or anxious, or unable to sleep at night because yourmind is troubled all the time - these days?Rather much12/14/2023 Exercise Vital SignAnswerDate RecordedOn average, how many days per week do you engage in moderate to strenuous exercise (like a brisk walk)?2 days12/14/2023On average, how many minutes do you engage in exercise at this level?10 min 12/14/2023Hunger Vital SignAnswerDate RecordedWithin the past 12 months, you worried that your food would run out before you got the money to buymore.Never true12/14/2023Within the past 12 months, the food you bought just didn't last and you didn't have money to get more.Never true12/14/2023RAPARE - TransportationAnswerDate RecordedIn the past 12 months, has lack of transportation kept you from medical appointments or from getting medications? Yes12/14/2023In the past 12 months, has lack of transportation kept you from meetings, work, or from getting things needed for daily living?Yes12/14/2023 Housing Stability Vital SignAnswerDate RecordedIn the last 12 months, was there a time when you were not able to pay the mortgage or rent on time?No12/14/2023In the last 12 months, how many places have you lived?In the last 12 months, was there a time when you did not have a steady place to sleep or slept in [facility] (including now)?No4CommentsUnknownSex and Gender InformationValueDate RecordedSex Assigned at WolcsWmthlc70/16/2024 4:08 PM EDT Legal VqcAlfpjs09/02/2012 8:33 AM ESTGender JbvafluwWikdve39/16/2024 4:08 PM EDT Sexual AeezkhjkvdhHhuhytkc47/16/2024 4:08 PM EDTOccupationIndustryJob Start Date Job End DateUnemployedNot on fileNot on fileNot on file Last Filed Vital Signs Vital SignReadingTime TakenCommentsBlood Kiitpgpl825/7608/22/2016 10:09 AM EDT Dfzqb306708/22/2016 10:09 AM EDTTemperature--Respiratory Enfo1816 10:09 AM EDTOxygen Pzfnhyenwm10%08/22/2016 10:09 AM EDTInhaled Oxygen Concentration-- Wpwnth34.4 kg (131 lb)08/22/2016 10:09 AM WOMOmllvk976 cm (5' 3 )08/22/2016 10:09 AM EDTBody Mass Index23.211 10:09 AM EDT Plan of Treatment Health MaintenanceDue DateLast DoneCommentsAnxiety Ryvvrsali43/01/2011Depression Zcpjqmatd79/01/2011HIV Fmbphimwt01/01/2011Pneumococcal Vaccine (1 of 2 - PCV) 2012Cervical Cancer Gllexwwcq45/01/2014HPV Vaccine (1 - 3-dose SCDM series)2020Covid-19 Vaccine (2 - 2024- season) Influenza Vaccine (#1)2025DTaP,Tdap,Td Vaccine (3 - Td or Tdap)01/21/2029 01/21/2019, 05/26/2017Hepatitis B EtowxxgNmqvhbceo22/17/2001, 09/18/2000, 06/08/1999Hepatitis C WbchrfmnaKpblcgiyx34/01/2019, 01/16/2019 Insurance
--- OUTSIDE RECORDS SUMMARY | 2025-08-24 15:06 | XMS_ITS | Clinical Summary ---
Author Organization [facility] Address [address] [place] [address] Care Team Providers Care Housekeeper/Laundry Assistant Name Role Phone Unavailable Primary Care Provider Unavailabl e Allergies Active AllergyReactionsCriticalityNoted DateCommentsBee VenomAnaphylaxis,Rash, BmbeorlxJmus23/17/2017 Other Reaction(s): hives Clindamycin/Dqblkikqik62/06/4532OhidwctpnzbJfptuizv18/08/2016 Other Reaction(s): hives, Nausea/vomiting, Other (See Comments), Unknown Other Reaction(s): Unknown Other reaction(s): Unknown Sulfa AntibioticsHeadache,TevnXfu1902/04/2016 Other Reaction(s): Nausea/vomiting, Other (see comments), Other (See Comments), Unknown, upset stomach Medications MedicationSigDispense QuantityRefillsLast FilledStart DateEnd DateStatus methadone (Methadose) 40 MG dispersible tablet Take 69 mg by mouth 1 (one) time each day at the same time.Active albuterol (ProAir RespiClick) 90 mcg/act breath-activated inhaler Inhale 2 puffs every 4 (four) hoursActive Sublocade 300 MG/1.5ML injection 01/16/2024ctive Buprenorphine HCl-Naloxone HCl (Suboxone) 8-2 MG SL film 01/16/2024ctive buprenorphine-naloxone (Suboxone) 2-0.5 MG per sublingual film TAKE 2 FILMS SUBLINGUALLY TWICE A DAY FOR 3 DAYS THEN 2 FILMS IN THE MORNING AND 1 FILM IN THE EVENING ON DAY 4, THEN 1 FILM TWICE A DAY ON11/10/2023ctive cetirizine (ZyrTEC) 10 MG tablet TAKE 1 TABLET BY MOUTH EVERY DAY for 7 days12/14/2023ctive cloNIDine (Catapres) 0.1 MG tablet 01/16/2024ctive cyclobenzaprine (Flexeril) 10 MG tablet Take 10 mg by mouth every 8 (eight) hours if xzhudw9711/09/2023ctive dicyclomine (Bentyl) 20 MG tablet Take 20 mg by mouth every 8 (eight) hours if kkrtjz7711/09/2023ctive famotidine (Pepcid) 20 MG tablet Take 20 mg by mouth in the morning and 20 mg before bedtime.12/14/2023ctive fluticasone (Flonase) 50 MCG/ACT nasal spray INHALE 2 PUFFS nasally DAILY IN EACH NOSTRILActive gabapentin (Neurontin) 300 MG capsule Take 300 mg by mouth in the morning and 300 mg in the evening and 300 mg before bedtime.11/09/2023ctive hydrOXYzine pamoate (Vistaril) 25 MG capsule 01/14/2024ctive ibuprofen 600 MG tablet 01/16/2024ctive Melatonin 10 MG capsule Take 1 capsule by mouth as needed at quwfepr2811/09/2023ctive methocarbamol (Robaxin) 750 MG tablet 01/16/2024ctive naloxone (Narcan) 4 mg/0.1 mL nasal spray USE DIRECTED TO REVERSE SUSPECTED OR CONFIRMED OPIOID OVERDOSE AND CALL 911! 11/09/2023ctive traMADol (Ultram) 50 MG tablet 01/14/2024ctive traZODone (Desyrel) 50 MG tablet 01/23/2024ctive Chlorhexidine Gluconate (Hibiclens) 4 % solution Indications:Rash and other nonspecific skin eruptionApply 1 Application topically Daily From the neck down 118 mL 11004/03/2024ctive Active Problems Estimated Date of ZjfuvkulRswsjxhaFsz97/03/2026ased on Ultrasound No known active problems Encounters DateTypeDepartmentCare YxloKodfqtlvunz60/27/2025 2:10 PM EDTRoutine NOMS Laura FRANCIS [address] [place] [address] Swapnil Rivera, DO Second trimester ([facility]); 13 weeks gestation of ([facility])08/24/2025amboo flowsheet NOMNancy FRANCIS [address] [place] [id number] Swapnil Rivera DO 07/23/2025 1:00 PM EDTInitial NOMNancy Mendez [facility] [place] [address] [place]: 8w4d07/23/2025 12:30 PM EDTAncillary Procedure NOMNancy Mendez [facility] [place] [place] [address] Missed menses; Positive urine test ([facility])06/22/2025Telephone ELENI FRANCIS [address] [place] [address] Zhane Thornton MA from Last 3 Months Family History Medical HistoryRelationNameCommentsHeart diseaseFatherHeart diseaseMaternal GrandmotherHeart diseaseMotherRelationNameStatusCommentsFatherMaternal GrandmotherMother Social History Tobacco UseTypesPacks/DayYears UsedDateSmoking Tobacco: NeverSmokeless Tobacco: Never Tobacco Cessation:Counseling Given: Not Answered Alcohol UseStandard Drinks/WeekCommentsNever0 (1 standard drink = 0.6 oz pure alcohol)Estimated Date of EuuxymodFokubuqeNlw33/03/2026ased on UltrasoundSex and Gender InformationValueDate RecordedSex Assigned at BirthNot on fileLegal YsdUicnvq45/15/2023 8:13 PM EDTGender IdentityNot on fileSexual OrientationNot on file Last Filed Vital Signs Vital SignReadingTime TakenCommentsBlood Tvlywyev68/5410 2:29 PM EDT Pulse--Temperature--Respiratory Rate--Oxygen Saturation--Inhaled Oxygen Concentration--Bvlxzl75.5 kg (126 lb 12.8 oz)08/24/2025 2:29 PM LNVObvwjc828.4 cm (5')07/10/2023 1:46 PM EDTBody Mass Index24.7609 1:46 PM EDT Plan of Treatment DateTypeDepartmentCare Team (Latest Contact Info)Azhegrqajkh39/25/2025 1:30 PM ESTRoutine NOMS Laura FRANCIS [address] [place] [id number] Joanne Soto PA [address] [address] Health MaintenanceDue DateLast DoneCommentsMMR Vaccines (1 of 1 - Standard series)1994DTaP/Tdap/Td Vaccines (1 - Tdap)2000Varicella Vaccines (1 of 2 - 13+ 2-dose series)2006Hepatitis B Vaccines (1 of 3 - 19+ 3-dose series)2012HPV Vaccines (1 - 3-dose SCDM series)2020HPV/Cotest 2023ervical Cancer Ikzbgsllg04/20/2025Pap Smear06/17//2COVID- 19 Vaccine ( - season)/03/2021Influenza Vaccine (#1) 2025HIB VaccinesAged OutNo longer eligible based on patient's age to complete this topicHepatitis A VaccinesAged OutNo longer eligible based on patient's age to complete this topicIPV VaccinesAged OutNo longer eligible based on patient's age to complete this topicMeningococcal B VaccineAged OutNo longer eligible based on patient's age to complete this topicMeningococcal VaccineAged OutNo longer eligible based on patient's age to complete this topicPneumococcal Vaccine: Pediatrics (0 to 5 Years) and At-Risk Patients (6 to 64 Years)Aged Out No longer eligible based on patient's age to complete this topicRotavirus VaccinesAged OutNo longer eligible based on patient's age to complete this topic Procedures Procedure NamePriorityDate/TimeAssociated DiagnosisCommentsPOCT URINALYSIS NVUJTPVUJchjamc75/27/2025 2:33 PM EDT 13 weeks gestation of ([facility]) POCT URINALYSIS YDJLDPXZWvccgqt10/25/2025 1:56 PM EDT Missed menses POCT , BHJBYXqxmoqy73/25/2025 1:55 PM EDT Missed menses US OB EXJZTZJZSRHJFkujdvi51/25/2025 12:53 PM EDT Missed menses Positive urine test ([facility]) PAP PBBMLXkppwlt39/20/2022 12:00 AM EDTfrom Last 3 Months or Most Recently Relevant to Health Maintenance Results * (ABNORMAL) POCT urinalysis dipstick manually resulted (08/24/2025 2:33 PM EDT) Only the most recent of2 resultswithin the time period is included. ComponentValueRef RangeTest MethodAnalysis TimePerformed AtPathologist Signature Color, UAYellowClarity, UAClearGlucose, UANegativeNegative - 2000(110) ++++ mg/dLBilirubin, UANegativeNegative - 4(70) +++ mg/dLKetones, UANegativeNegative - 160(16) ++++ mg/dLSpec Grav, UA1.0301 - 1.03Blood, UANegativeNegative - 50 Shaun/mcLpH, UA5.55 - 9Protein, UATraceNegative - 2000(20) ++++ mg/dLUrobilinogen, UA>=8.00.2 - 12 mg/dLLeukocytes, UANegativeNegative - 500+++ Stefany/mcLNitrite, UA NegativeNegative - PositiveSpecimen (Source)Anatomical Location / Laterality Collection Method / VolumeCollection TimeReceived ChchGdigs21/27/2025 2:33 PM EDT Narrative Authorizing ProviderResult TypeResult StatusCorey Miguel DOPOINT OF CARE TEST ENTER/EDIT ORDERABLESFinal Result * (ABNORMAL) POCT , urine manually resulted (07/23/2025 1:55 PM EDT) ComponentValueRef RangeTest MethodAnalysis TimePerformed AtPathologist SignaturePreg Test, UrPositiveNegativeSpecimen (Source)Anatomical Location / LateralityCollection Method / VolumeCollection TimeReceived TimeUrine 07/23/2025 1:55 PM EDT Narrative Authorizing ProviderResult TypeResult StatusCorey Miguel DOPOINT OF CARE TEST ENTER/EDIT ORDERABLESFinal Result * US OB transvaginal (07/23/2025 12:53 PM EDT)Anatomical RegionLaterality ModalityBodyUltrasoundSpecimen (Source)Anatomical Location / Laterality Collection Method / VolumeCollection TimeReceived Time07/23/2025 2:38 PM EDT Impressions 07/23/2025 3:05 PM EDT Findings consistent with a live intrauterine gestation, current sonographic age of 8 weeks and4 days resulting in an estimated date of delivery of February 28, 2026. TRANSCRIBED BY: ? ELECTRONICALLY SIGNED BY: Florian Dwyer MD Narrative 07/23/2025 3:05 PM EDT FINDINGS: A single intrauterine gestational sac is present. Small subchorionic fluid collection not associated with the closed cervical os, cervical length 4.7 cm. ?? A single pole is present. Normal heart rate at 169 beats per minute. ??Yolk sac also is seen. ?? Current sonographic age is 8 weeks and 4 days based on the crown-rump length measurement of 2.0 cm. ??Based on this age, current estimated date of delivery is February 28, 2026. ?? No pelvic fluid or adnexal mass present. ? Procedure Note Florian Dwyer MD - 07/23/2025 FINDINGS: A single intrauterine gestational sac is present. Small subchorionic fluid collection not associated with the closed cervical os, cervical length 4.7cm. A single pole is present. Normal heart rate at 169 beatsper minute. Yolk sac also is seen. Current sonographic age is 8 weeksand 4 days based on the crown-rump length measurement of 2.0 cm. Based onthis age, current estimated date of delivery is February 28, 2026. No pelvicfluid or adnexal mass present. IMPRESSION: Findings consistent with a live intrauterine gestation, currentsonographic age of 8 weeks and4 days resulting in an estimated date ofdelivery of February 28, 2026. TRANSCRIBED BY: ELECTRONICALLY SIGNED BY: Florian Dwyer MD Authorizing ProviderResult TypeResult StatusCorey Miguel [facility] OB US PROCEDURES Final Result * Pap Smear (06/17/2022 12:00 AM EDT)Specimen (Source)Anatomical Location / LateralityCollection Method / VolumeCollection TimeReceived TimeSwabCervical swab / Unknown Narrative Authorizing ProviderResult TypeResult StatusHistorical Provider CATHY CYTOLOGY ORDERABLESFinal ResultPerforming OrganizationAddressCity/State/ZIP CodePhone Number EXTERNAL LAB from Last 3 Months or Most Recently Relevant to Health Maintenance Insurance
[2025-08-24 15:42] LABS: Hematocrit 35.8 % (36.0-48.0); Hemoglobin 12.8 g/dL (12.0-16.0); Immature Granulocytes Abs Auto 0.04 10^3/uL (0.00-0.03); Immature Granulocytes Pct Auto 0.5 % (0.0-0.5); Lymphocytes Absolute Auto 1.3 10^3/uL (1.2-3.8); Mean Corpuscular HGB Conc 35.8 g/dL (29.9-35.2); Mean Corpuscular Hemoglobin 32.0 pg (26.7-34.0); Mean Corpuscular Volume 89.5 fL (81.0-99.0); Platelet Count 173 10^3/uL (150-450); Red Blood Count 4.00 10^6/uL (4.20-5.40); White Blood Count 8.2 10^3/uL (4.0-11.0)
[2025-08-24 15:54] LABS: Cannabinoid Screen Urine NEGATIVE (NEGATIVE); Methamphetamines Screen Urine NEGATIVE (NEGATIVE); Tricyclic Antidepressant Urine NEGATIVE (NEGATIVE)
[2025-08-25 08:09] LABS: Rubella Antibodies, IgG <0.90 index (Immune >0.99)
[2025-08-25 12:09] LABS: Rapid Plasma Reagin, Quant Non Reactive titer (NonRea<1:1)
== END 2025-08-24 15:01 | disposition home or self-care (01) ==
LOC: LAB 15:02
PROVIDERS: Visit Provider Obstetrics & Gynecology
DX: Z34.01 Encounter for supervision of normal first pregnancy, first trimester (principal); N92.6 Irregular menstruation, unspecified
CPT/HCPCS: 36415; 80307; 83036; 85025; 86592; 86762; 86803; 86850; 86900; 86901; 87086; 87340; 87389

== ENCOUNTER 2025-09-22 19:51 | Outpatient (REF) | payer OTHER, SELFPAY ==
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
--- OUTSIDE RECORDS SUMMARY | 2025-09-22 13:30 | XMS_ITS | Encounter Summary ---
Author Organization [facility] Address [address] [place] [address] Care Team Providers Care Bung Sewer Name Role Phone Unavailable Primary Care Provider Unavailabl e Reason for Visit * ReasonCommentsRoutine Visit Encounter Details DateTypeDepartmentCare Team (Latest Contact Info)Zagohthmetb69/25/2025 1:30 PM ESTRoutine [facility] [address] [address] Joanne Soto PA [address] [place], [facility]11 Well woman exam with routine gynecological exam; Screening, , for anatomic survey ([facility]); STD exposure; Second trimester ([facility]); 17 weeks gestation of ([facility]) Social History Tobacco UseTypesPacks/DayYears UsedDateSmoking Tobacco: NeverSmokeless Tobacco: NeverAlcohol UseStandard Drinks/WeekCommentsNever0 (1 standard drink = 0.6 oz pure alcohol)Estimated Date of HphqqebjLjjjfoqgGch81/03/2026ased on UltrasoundSex and Gender InformationValueDate RecordedSex Assigned at BirthNot on fileLegal WuhPrkhgj46/15/2023 8:13 PM EDTGender IdentityNot on fileSexual OrientationNot on filedocumented as of this encounter Last Filed Vital Signs Vital SignReadingTime TakenCommentsBlood Eghqmcyl107/6009/22/2025 1:51 PM EST Pulse--Temperature--Respiratory Rate--Oxygen Saturation--Inhaled Oxygen Concentration--Vlyerv80.6 kg (133 lb 8 oz)09/22/2025 1:51 PM ESTHeight--Body Mass Index26.0709 1:46 PM EDTdocumented in this encounter Progress Notes * RITA Rivers - 09/22/2025 1:30 PM EST Reason for Appointment: Patient ID: Pebbles Bonds is a 30 y.o. female who presents for Routine Visit Patient presents today for Return OB appointment. MEDICATIONS Current Outpatient Medications Medication Instructions albuterol (ProAir RespiClick) 90 mcg/act breath-activated inhaler 2 puffs, Inhalation, Every 4 hours RT Buprenorphine HCl-Naloxone HCl (Suboxone) 8-2 MG SL film buprenorphine-naloxone (Suboxone) 2-0.5 MG per sublingual film TAKE 2 FILMS SUBLINGUALLY TWICE A DAY FOR 3 DAYS THEN 2 FILMS IN THE MORNING AND 1 FILM IN THE EVENING ON DAY 4, THEN 1 FILM TWICE A DAYON cetirizine (ZyrTEC) 10 MG tablet TAKE 1 TABLET BY MOUTH EVERY DAY for 7 days Chlorhexidine Gluconate (Hibiclens) 4 % solution 1 Application, Apply externally, Daily, From the neck down cloNIDine (Catapres) 0.1 MG tablet cyclobenzaprine (FLEXERIL) 10 mg, Oral, Every 8 hours PRN dicyclomine (BENTYL) 20 mg, Oral, Every 8 hours PRN famotidine (PEPCID) 20 mg, Oral, 2 times daily fluticasone (Flonase) 50 MCG/ACT nasal spray INHALE 2 PUFFS nasally DAILY IN EACH NOSTRIL gabapentin (NEURONTIN) 300 mg, Oral, 3 times daily hydrOXYzine pamoate (Vistaril) 25 MG capsule ibuprofen 600 MG tablet Melatonin 10 MG capsule 1 capsule, Oral, Nightly PRN methadone (METHADOSE) 69 mg, Oral, Every 24 hours methocarbamol (Robaxin) 750 MG tablet naloxone (Narcan) 4 mg/0.1 mL nasal spray USE DIRECTED TO REVERSE SUSPECTED OR CONFIRMED OPIOID OVERDOSE AND CALL 911! Sublocade 300 MG/1.5ML injection traMADol (Ultram) 50 MG tablet traZODone (Desyrel) 50 MG tablet ALLERGIES Allergies Allergen Reactions Bee Venom Anaphylaxis, Rash and Swelling Other Reaction(s): hives Clindamycin/Lincomycin Penicillins Headache Other Reaction(s): hives, Nausea/vomiting, Other (See Comments), Unknown Other Reaction(s): Unknown Other reaction(s): Unknown Sulfa Antibiotics Headache and Rash Other Reaction(s): Nausea/vomiting, Other (see comments), Other (See Comments), Unknown, upset stomach PROBLEMS Active Ambulatory Problems Diagnosis Date Noted No Active Ambulatory Problems Resolved Ambulatory Problems Diagnosis Date Noted No Resolved Ambulatory Problems Past Medical History: Diagnosis Date Dyspareunia, female H/O drug abuse ([facility]) History of unilateral fallopian tube excision Left ovarian cyst Ovarian abscess Pelvic pain HISTORY PAST MEDICAL HISTORY SOCIAL HISTORY Past Medical History: Diagnosis Date Dyspareunia, female H/O drug abuse ([facility]) History of unilateral fallopian tube excision Left ovarian cyst Ovarian abscess Pelvic pain Social History Tobacco Use Smoking status: Never Smokeless tobacco: Never Substance Use Topics Alcohol use: Never Drug use: Never FAMILY HISTORY Family History Problem Relation Name Age of Onset Heart disease Mother Heart disease Father Heart disease Maternal Grandmother SURGICAL HISTORY Past Surgical History: Procedure Laterality Date DILATION AND CURETTAGE OF UTERUS HYSTEROSCOPY OOPHORECTOMY Left 06/10/2022 PAP SMEAR 05/2022 WNL TUBAL LIGATION Left 06/10/2022 REVIEW OF SYSTEMS Review of Systems: Review of Systems Constitutional: Negative. HENT: Negative. Eyes: Negative. Respiratory: Negative. Cardiovascular: Negative. Gastrointestinal: Negative. Genitourinary: Negative. Musculoskeletal: Negative. Skin: Negative. Neurological: Negative. All other systems reviewed and are negative. Hematological: Negative. Endocrine: Negative. Allergic/Immunologic: Negative. OBJECTIVE Objective: Physical Exam Constitutional: Appearance: Normal appearance. Genitourinary: Right Adnexa: not tender and no mass present. Left Adnexa: not tender and no mass present. No cervical discharge. Breasts: Breasts are soft. Right: Normal. Left: Normal. HENT: Head: Normocephalic. Nose: Nose normal. Mouth/Throat: Mouth: Mucous membranes are moist. Cardiovascular: Rate and Rhythm: Normal rate. Pulmonary: Effort: Pulmonary effort is normal. Abdominal: General: Bowel sounds are normal. Palpations: Abdomen is soft. Musculoskeletal: General: Normal range of motion. Cervical back: Normal range of motion. Neurological: General: No focal deficit present. Mental Status: She is alert. Skin: General: Skin is warm and dry. Psychiatric: Mood and Affect: Mood normal. Vitals and nursing note reviewed. Exam conducted with a catalyst concentration operator present. Vitals: Estimated body mass index is 26.07 kg/m?? as calculated from the following: Height as of 07/10/23: 5'. Weight as of this encounter: 133 lb 8 oz. BP: 118/60 Patient's last menstrual period was 05/17/2025. Assessment/Plan ICD-10-CM 1. Well woman exam with routine gynecological exam Z01.419 Pap Smear HPV DNA probe, amplified 2. Screening, , for anatomic survey ([facility]) Z36.89 US OB 14+ weeks anatomy scan US OB 14+ weeks anatomy scan 3. STD exposure Z20.2 SURESWAB(R) ADVANCED VAGINITIS PLUS, TMA CHLAMYDIA TRACHOMATIS (GENITO/STI) Neisseria gonorrhea DNA probe, direct 4. Second trimester ([facility]) Z34.92 Alpha fetoprotein, maternal Alpha fetoprotein, maternal 5. 17 weeks gestation of ([facility]) Z3A.17 POCT urinalysis dipstick manually resulted Assessment/Plan Return OB/Annual Exam: Patient presents today for a annual exam/routine obstetrics appointment. Patient is currently 41f8nexzcorij. Patient states she is doing well but has complaints of nausea in the morning. Pap and cultures was obtained without difficulty and patient was given orders for anatomy scan and msAFP to be obtained. Orders Placed This Encounter Procedures HPV DNA probe, amplified US OB 14+ weeks anatomy scan CHLAMYDIA TRACHOMATIS (GENITO/STI) Neisseria gonorrhea DNA probe, direct Alpha fetoprotein, maternal POCT urinalysis dipstick manually resulted Follow Up: Patient is to schedule annual exam for next year and return to office in 4 weeks for OB appointment. Documented by Alyse Godoy LPN on behalf of: RITA Rivers documented in this encounter Plan of Treatment DateTypeDepartmentCare Team (Latest Contact Info)Opjdxducuxg18/23/2025 1:00 PM ESTAncillary Procedure [facility] [address] [place] [address] 10/20/2025 2:10 PM ESTRoutine [facility] [address] [place] [address] MiguelSwapnil rodriguez, DO [address] [place], [place] [phone] NameTypePriorityAssociated DiagnosesOrder ScheduleSURESWAB(R) ADVANCED VAGINITIS PLUS, TMAPathology and CytologyRoutine STD exposure Ordered: 09/22/2025HLAMYDIA TRACHOMATIS (GENITO/STI)LabRoutine STD exposure Ordered: 09/22/2025Neisseria gonorrhea DNA probe, directLabRoutine STD exposure Ordered: 09/22/2025Pap SmearPathology and CytologyRoutine Well woman exam with routine gynecological exam Ordered: 09/22/2025HPV DNA probe, amplifiedMicrobiologyRoutine Well woman exam with routine gynecological exam Ordered: 09/22/2025US OB 14+ weeks anatomy scanImagingRoutine Screening, , for anatomic survey ([facility]) Expected: 09/22/2025, Expires: 12/23/2025lpha fetoprotein, maternalLabRoutine Second trimester ([facility]) Expected: 09/22/2025 (Approximate), Expires: 11/22/2025documented as of this encounter Procedures Procedure NamePriorityDate/TimeAssociated DiagnosisCommentsPOCT URINALYSIS KLLQASNMKffexus70/25/2025 1:55 PM EST 17 weeks gestation of ([facility]) documented in this encounter Results * (ABNORMAL) POCT urinalysis dipstick manually resulted (09/22/2025 1:55 PM EST) ComponentValueRef RangeTest MethodAnalysis TimePerformed AtPathologist SignatureColor, UAYellowClarity, UAClearGlucose, UANegativeNegative - 2000(110) ++++ mg/dLBilirubin, UANegativeNegative - 4(70) +++ mg/dLKetones, UA NegativeNegative - 160(16) ++++ mg/dLSpec Grav, UA1.0151 - 1.03Blood, UA NegativeNegative - 50 Shaun/mcLpH, UA6.05 - 9Protein, UAPositiveNegative - 1999(20) ++++ mg/dLComment:TraceUrobilinogen, UA0.20.2 - 12 mg/dLLeukocytes, UANegativeNegative - 500+++ Stefany/mcLNitrite, UANegativeNegative - Positive Specimen (Source)Anatomical Location / LateralityCollection Method / Volume Collection TimeReceived BqugKcxyr88/25/2025 1:55 PM EST Narrative Authorizing ProviderResult TypeResult StatusNorth[facility] TEST ENTER/EDIT ORDERABLESFinal Result documented in this encounter Visit Diagnoses Diagnosis Well woman exam with routine gynecological exam Routine gynecological examination Screening, , for anatomic survey ([facility]) Encounter for anatomic survey STD exposure Second trimester ([facility]) state, incidental 17 weeks gestation of ([facility]) documented in this encounter
--- OUTSIDE RECORDS SUMMARY | 2025-09-22 19:55 | XMS_ITS | Clinical Summary ---
Author Organization [facility] Address [address], [address] [place] [address] Care Team Providers Care Purchasing/Receiving Name Role Phone Unavailable Primary Care Provider Unavailabl e Allergies Active AllergyReactionsCriticalityNoted DateCommentsBee VenomRashMedium 01/12/2017Clindamycin/Mjlqvzylmd97/06/5226Bfraiximfd38/31/2018Penicillin GOther (See Comments)02/04/2016Sulfa AntibioticsOther (See Comments)02/04/2016 Medications MedicationSigDispense QuantityRefillsLast FilledStart DateEnd DateStatus MV-Min-Fe Fum-FA-DHA ( 1 PO) Take by mouthActive fluticasone (FLONASE) 50 MCG/ACT nasal spray Indications:Acute non-recurrent pansinusitisTake 1 spray each nostril at night 1 each 5Active cetirizine (ZYRTEC) 10 MG tablet Indications:Sore throat,Acute non-recurrent pansinusitisTake 1 tablet by mouth daily 30 tablet 511/5Active azithromycin (ZITHROMAX) 250 MG tablet Indications:Bilateral otitis media, unspecified chronicity, unspecified otitis media typeTake 2 tabs (500 mg) on Day 1, and take 1 tab (250 mg) on days 2 through 5. 1 packet Discontinued(LIST CLEANUP) ibuprofen (ADVIL;MOTRIN) 600 MG tablet Take 1 tablet by mouth every 8 hours as needed for Pain 30 tablet Discontinued(LIST CLEANUP) ondansetron (ZOFRAN ODT) 4 MG disintegrating tablet Take 1 tablet by mouth every 8 hours as needed for Nausea 20 tablet Discontinued(LIST CLEANUP) QUEtiapine (SEROQUEL) 50 MG tablet Take 50 mg by mouth 2 times daily08/27/2025Discontinued(LIST CLEANUP) PARoxetine (PAXIL) 40 MG tablet Take 40 mg by mouth every jridhfo3108/27/2025Discontinued(LIST CLEANUP) baclofen (LIORESAL) 20 MG tablet Take 40 mg by mouth 3 times daily08/27/2025Discontinued(LIST CLEANUP) dicyclomine (BENTYL) 10 MG capsule Take 10 mg by mouth 4 times daily (before meals and nightly)08/27/2025 Discontinued(LIST CLEANUP) ketorolac (TORADOL) 10 MG tablet Take 1 tablet by mouth every 6 hours as needed for Pain 20 tablet Discontinued(LIST CLEANUP) lidocaine viscous hcl (XYLOCAINE) 2 % SOLN solution Take 15 mLs by mouth as needed for Irritation 100 mL Discontinued(LIST CLEANUP) Active Problems Estimated Date of CcgmeiwjUvihtucdTuq48/20/2026 No known active problems Encounters DateTypeDepartmentCare ExxmKoashdcvysg38/04/2025Results Follow-Up [facility] [address] [place] [id number] Kirti Hess APRN 08/27/2025 12:30 PM EDTOffice Visit [facility] [address] [place] [id number] Kirti Hess APRN Acute non-recurrent pansinusitis (Primary Dx); Sore throat; 13 weeks gestation of cqnkaxtou41/30/2025Orders Only [facility] [address] [address] Kirti Hess APRN Sore throatfrom Last 3 Months Social History Tobacco UseTypesPacks/DayYears UsedDateSmoking Tobacco: Every DayCigarettes Smokeless Tobacco: Never Tobacco Cessation:Ready to Q uit: Not Asked; Counseling Given: Not Answered Alcohol UseStandard Drinks/WeekCommentsNo0 (1 standard drink = 0.6 oz pure alcohol)PHQ-2AnswerDate RecordedPHQ-9 Total Xmeqf032Housing Stability Vital SignAnswerDate RecordedIn the last 12 months, was there a time when you were not able to pay the mortgage or rent on time?No08/27/2025In the past 12 months, how many times have you moved where you were living?t any time in the past 12 months, were you homeless or living in a longterm (including now)?No08/27/2025Hunger Vital SignAnswerDate RecordedWithin the past 12 months, you worried that your food would run out before you got the money to buymore. Never true08/27/2025Within the past 12 months, the food you bought just didn't last and you didn't have money to get more.Never true08/27/2025PRAPARE - TransportationAnswerDate RecordedIn the past 12 months, has lack of transportation kept you from medical appointments or from getting medications?No 08/27/2025In the past 12 months, has lack of transportation kept you from meetings, work, or from getting things needed for daily living?No08/27/2025HC UtilitiesAnswerDate RecordedIn the past 12 months has the [employer], gas, oil, or water [employer] threatened to shut off services in your home?No08/27/2025 Estimated Date of HgsefwvgUdlvhimlLie59/20/2026Sex and Gender InformationValue Date RecordedSex Assigned at BirthNot on fileLegal VxgStvljc42/12/2013 3:28 AM ESTGender IdentityNot on fileSexual OrientationNot on file Last Filed Vital Signs Vital SignReadingTime TakenCommentsBlood Ttumibgm003/6408/27/2025 12:31 PM EDT Nnuvg369508/27/2025 12:31 PM XFYEcewvnjluki47.5 ??C (97.7 ??F)08/27/2025 12:31 PM EDTRespiratory Gegi075406/05/2019 10:30 AM EDTOxygen Vzprueamku55%08/27/2025 12:31 PM EDTInhaled Oxygen Concentration--Rlcwcg13.5 kg (129 lb)08/27/2025 12:31 PM MIJYdahhs826.5 cm (5' 2 )08/27/2025 12:31 PM EDTBody Mass Index23.5908/27/2025 12:31 PM EDT Plan of Treatment Health MaintenanceDue DateLast DoneCommentsVaricella vaccine (1 of 2 - 13+ 2- dose series)2006HIV fpouaw5508/29/2008Hepatitis C eybwtq9108/29/2011 Pneumococcal 0-49 years Vaccine (1 of 2 - PCV)2012Pap smear2014 Cervical cancer jrluiq3408/29/2023HPV (without or with Pap)2023Flu vaccine (#1)05/29/2025OVID-19 Vaccine (2 - season)/03/2021 Depression Oxdbig52, 08/27/2025DTaP/Tdap/Td vaccine (3 - Td or Tdap), 05/26/2017Hepatitis B pqowifaIwahytmtn52/17/2001, 09/18/2000, 06/08/1999HPV vaccine (No Doses Required)CompletedHepatitis A vaccineAged OutNo longer eligible based on patient's age to complete this topic Hib vaccineAged OutNo longer eligible based on patient's age to complete this topicMeningococcal (ACWY) vaccineAged OutNo longer eligible based on patient's age to complete this topicMeningococcal B vaccineAged OutNo longer eligible based on patient's age to complete this topicPolio vaccineAged OutNo longer eligible based on patient's age to complete this topicRespiratory Syncytial Virus (RSV) or age 60 yrs+ (No Doses Required)Completed Procedures Procedure NamePriorityDate/TimeAssociated DiagnosisCommentsCULTURE, THROAT Hqwjooo6908/27/2025 2:32 PM EDT Sore throat POCT RAPID STREP ZVmmgdda70/30/2025 12:46 PM EDT Sore throat from Last 3 Months Results * Culture, Throat (08/27/2025 2:32 PM EDT)ComponentValueRef RangeTest Method Analysis TimePerformed AtPathologist SignatureThroat CultureCult,Throat: ??Oral alex, negative for Group A Strep and other beta Cult,Throat: ??hemolytic streptococci Performed at [address] [address] ([phone] [facility] LABSpecimen (Source)Anatomical Location / LateralityCollection Method / VolumeCollection TimeReceived TimeThroatSPECIMEN FROM THROAT / Brqvjjk7208/27/2025 2:32 PM EDT1 5:41 PM EDT Narrative [facility] - 08/30/2025 11:49 AM EST ORDER#: [id number] ORDERED BY: KIRTI HESS SOURCE: Throat Throat ?COLLECTED: ??08/27/25 14:32 ANTIBIOTICS AT [place].: ?RECEIVED : ??08/27/25 17:41 Authorizing ProviderResult TypeResult Varsha Hess APRNMICROBIOLOGY - GENERAL ORDERABLESFinal ResultPerforming OrganizationAddressCity/State/ZIP CodePhone Number [facility] [address] [place] [address], [facility] [phone] * POCT rapid strep A (08/27/2025 12:46 PM EDT)ComponentValueRef RangeTest Method Analysis TimePerformed AtPathologist SignatureStrep A AgNone DetectedNone DetectedSpecimen (Source)Anatomical Location / LateralityCollection Method / VolumeCollection TimeReceived TimeSPECIMEN FROM THROAT / Pgscsbg8908/27/2025 12:46 PM EDT Narrative Authorizing ProviderResult TypeResult Varsha Hess APRNPOINT OF CARE TEST ORDERABLESFinal Result from Last 3 Months Insurance
--- OUTSIDE RECORDS SUMMARY | 2025-09-22 19:55 | XMS_ITS | Clinical Summary ---
Author Organization [facility] Healthcare Address [address] [place] [address] Care Team Providers Care Veneer Grader Name Role Phone Unavailable Primary Care Provider Unavailabl e Allergies Active AllergyReactionsCriticalityNoted DateCommentsBee VenomAnaphylaxis,Rash, AkwqisdtNzui72/17/2017 Other Reaction(s): hives Clindamycin/Ajvcobhvro41/06/8843UrkinbytocrEqkbwcpi14/08/2016 Other Reaction(s): hives, Nausea/vomiting, Other (See Comments), Unknown Other Reaction(s): Unknown Other reaction(s): Unknown Sulfa AntibioticsHeadache,HqgjYns9802/04/2016 Other Reaction(s): Nausea/vomiting, Other (see comments), Other [...] by mouth every 8 (eight) hours if xakwvw3011/09/2023ctive dicyclomine (Bentyl) 20 MG tablet Take 20 mg by mouth every 8 (eight) hours if hjzikg5311/09/2023ctive famotidine (Pepcid) 20 MG tablet Take 20 [...] 1 capsule by mouth as needed at bwexznb7111/09/2023ctive methocarbamol (Robaxin) 750 MG tablet 01/16/2024ctive naloxone [...] mL 11004/03/2024ctive Active Problems Estimated Date of CqjfyrsiSgafacrhBis60/03/2026ased on Ultrasound No known active problems Encounters DateTypeDepartmentCare BnseQyjagspjfyz54/25/2025 1:30 PM ESTRoutine [facility] [address] [place] [address] [place] [address] Joanne Soto PA Well woman exam with routine gynecological exam; Screening, , for anatomic survey ([facility]); STD exposure; Second trimester ([facility]); 17 weeks gestation of ([facility])09/22/2025amboo flowsheet [facility] [address] [place] [address] Joanne Soto PA 09/01/2025Telephone [facility] [address] [place] [address] Swapnil Rivera, DO 08/31/2025bstract [facility] [address] [place] [address] Swapnil Rivera, DO 08/31/2025bstract [facility] [address] [place] [address] Swapnil Rivera, DO 08/24/2025 2:10 PM EDTRoutine [facility] [address] [place] [address] Swapnil Rivera, DO Second trimester ([facility]); 13 weeks gestation of ([facility])08/24/2025linisync Result Encounter [facility] External Department Unsolicited Swapnil Rivera, DO 08/24/2025amb flowsheet [facility] [address] [place] [address] Swapnil Rivera, DO 07/23/2025 1:00 PM EDTInitial [facility] [address] [place] [address] GA: 8w4d07/23/2025 12:30 PM EDTAncillary Procedure [facility] [address] [place] [address] Missed menses; Positive urine test ([facility])06/22/2025Telephone [facility] [address] [place] [address] Zhane Thornton MA from Last 3 Months Family History Medical HistoryRelationNameCommentsHeart diseaseFatherHeart diseaseMaternal GrandmotherHeart diseaseMotherRelationNameStatusCommentsFatherMaternal GrandmotherMother Social History Tobacco UseTypesPacks/DayYears UsedDateSmoking Tobacco: NeverSmokeless Tobacco: Never Tobacco Cessation:Counseling Given: Not Answered Alcohol UseStandard Drinks/WeekCommentsNever0 (1 standard drink = 0.6 oz pure alcohol)Estimated Date of BjhyoyzeXruzkqfyRpb00/03/2026ased on UltrasoundSex and Gender InformationValueDate RecordedSex Assigned at BirthNot on fileLegal IaqZpmika75/15/2023 8:13 PM EDTGender IdentityNot on fileSexual OrientationNot on file Last Filed Vital Signs Vital SignReadingTime TakenCommentsBlood Depcbbvy812/6009/22/2025 1:51 PM EST Pulse--Temperature--Respiratory Rate--Oxygen Saturation--Inhaled Oxygen Concentration--Zxempf14.6 kg (133 lb 8 oz)09/22/2025 1:51 PM XCDIenmoq163.4 cm (5')07/10/2023 1:46 PM EDTBody Mass Index26.0709 1:46 PM EDT Plan of Treatment DateTypeDepartmentCare Team (Latest Contact Info)Okpublsodlt17/23/2025 1:00 PM ESTAncillary Procedure [facility]ENI FRANCIS [address] [place] [address] [place] [phone] 10/20/2025 2:10 PM ESTRoutine N[facility] [address] [place] [address] Swapnil Rivera DO [address] [place], [place] [id number] Health MaintenanceDue DateLast DoneCommentsHPV/Ufjutq043Cervical Cancer Lipnhsxem54/20/2025Pap Smear/2COVID-19 Vaccine (2024- season)Influenza Vaccine (#1)2025Pneumococcal Vaccine: Pediatrics (0 to 5 Years) and At-Risk Patients (6 to 64 Years)Aged OutNo longer eligible based on patient's age to complete this topic Procedures Procedure NamePriorityDate/TimeAssociated DiagnosisCommentsPOCT URINALYSIS URENZGYCLkgbyfz14/25/2025 1:55 PM EST 17 weeks gestation of ([facility]) HCV ANTIBODY RFX TO QUANT ZWLDtwyceq21/27/2025 3:29 PM EDT ALL RUBELLA IGG AAYpuidvp11/27/2025 3:29 PM EDT HBSAG ABWWPMPbyleke67/27/2025 3:29 PM EDT RAPID PLASMA REAGIN, BYQWIPnudhvk84/27/2025 3:29 PM EDT HIV AB/P24 AG WITH BKZUIVKzxxcsv65/27/2025 3:29 PM EDT ALL TYPE AND XWVFNAYulixhn87/27/2025 3:29 PM EDT MLR HEMOGLOBIN P8SOnbufsm42/27/2025 3:29 PM EDT ALL CBC WITH AUTO TYCMHsekbyz94/27/2025 3:29 PM EDT BOX MZLVYtjwyky80/27/2025 3:29 PM EDT URINE CULTURE, YDJQZQMItzurrh96/27/2025 3:08 PM EDT TBH DRUG SCREEN RAPID (URINE)Boljpxo1308/24/2025 3:08 PM EDT POCT URINALYSIS SAKSUCWXJwxfxpb00/27/2025 2:33 PM EDT 13 weeks gestation of ([facility]) POCT URINALYSIS MSDEEDZEWnslxkx13/25/2025 1:56 PM EDT Missed menses POCT , KSOJWCvpyqnv48/25/2025 1:55 PM EDT Missed menses US OB TNRKBFUMBEJPXvcqfst13/25/2025 12:53 PM EDT Missed menses Positive urine test ([facility]) PAP MYAAKJhkuooj32/20/2022 12:00 AM EDTfrom Last 3 Months or Most Recently Relevant to Health Maintenance Results * (ABNORMAL) POCT urinalysis dipstick manually resulted (09/22/2025 1:55 PM EST) Only the most recent of3 resultswithin the time period is included. ComponentValueRef RangeTest MethodAnalysis TimePerformed AtPathologist Signature Color, UAYellowClarity, UAClearGlucose, UANegativeNegative - 2000(110) ++++ mg/dLBilirubin, UANegativeNegative - 4(70) +++ mg/dLKetones, UANegativeNegative - 160(16) ++++ mg/dLSpec Grav, UA1.0151 - 1.03Blood, UANegativeNegative - 50 Shaun/mcLpH, UA6.05 - 9Protein, UAPositiveNegative - 2000(20) ++++ mg/dLComment: TraceUrobilinogen, UA0.20.2 - 12 mg/dLLeukocytes, UANegativeNegative - 500+++ Stefany/mcLNitrite, UANegativeNegative - PositiveSpecimen (Source)Anatomical Location / LateralityCollection Method / VolumeCollection TimeReceived TimeUrine 09/22/2025 1:55 PM EST Narrative Authorizing ProviderResult TypeResult StatusAmy Drake PAPOINT OF CARE TEST ENTER/EDIT ORDERABLESFinal Result * BOX TEST (08/24/2025 3:29 PM EDT)ComponentValueRef RangeTest MethodAnalysis TimePerformed AtPathologist SignatureBOX TEST SENT WYEZKQXDWSUAOO5EFHOKESDUPQ7 08/24/25TBHSpecimen (Source)Anatomical Location / LateralityCollection Method / VolumeCollection TimeReceived Time08/24/2025 3:29 PM EDT1 3:37 PM EDT Narrative [facility] - 08/24/2025 3:40 PM EDT Authorizing ProviderResult TypeResult StatusCorey Miguel DOLAB BLOOD ORDERABLES Final ResultPerforming OrganizationAddressCity/State/ZIP CodePhone Number [facility] * HBSAG SCREEN (08/24/2025 3:29 PM EDT)ComponentValueRef RangeTest Method Analysis TimePerformed AtPathologist SignatureHBSAG SCREENNegativeNegativeTBH Comment: Performed at: ??[address] ??[id number] [employer]illing Machine Set Up Operator: Tomer Pearce PhD, Phone: ??[phone] Specimen (Source)Anatomical Location / LateralityCollection Method / Volume Collection TimeReceived Time08/24/2025 3:29 PM EDT1 3:35 PM EDT Narrative [facility] - 08/25/2025 12:09 PM EDT Authorizing ProviderResult TypeResult StatusCorey Miguel DOLAB BLOOD ORDERABLES Final ResultPerforming OrganizationAddressCity/State/ZIP CodePhone Number [facility] * RAPID PLASMA REAGIN, QUANT (08/24/2025 3:29 PM EDT)ComponentValueRef RangeTest MethodAnalysis TimePerformed AtPathologist SignatureRAPID PLASMA REAGIN, QUANT Non ReactiveNonRea<1:1 titerTBHComment: Please Note: This test does not meet current guidelines for screening and diagnosis of syphilis. This test is intended for following treatment response in patients being treated for syphilis infection. To screen for syphilis infection, a reflex cascade that includes both RPR and a treponema-specific assay should be utilized, such as Treponema pallidum (Syphilis) Screening [place] (564463) or Rapid Plasma Reagin (RPR) Test With Reflex to Quantitative RPR and Confirmatory Treponema pallidum Antibodies (965791). Performed at: ??[address] ??[id number] [employer] Machine Set Up Operator: Tomer Pearce PhD, Phone: ??[phone] Specimen (Source)Anatomical Location / LateralityCollection Method / Volume Collection TimeReceived Time08/24/2025 3:29 PM EDT1 3:35 PM EDT Narrative [facility] - 08/25/2025 12:09 PM EDT Authorizing ProviderResult TypeResult StatusCorey Miguel DOLAB BLOOD ORDERABLES Final ResultPerforming OrganizationAddRiddle Hospitalty/State/ZIP CodePhone Number [facility] * HIV AB/P24 AG WITH REFLEX (08/24/2025 3:29 PM EDT)ComponentValueRef RangeTest MethodAnalysis TimePerformed AtPathologist SignatureHIV AB/P24 AG SCREENNon ReactiveNon ReactiveTBHComment: HIV-1/HIV-2 antibodies and HIV-1 p24 antigen were NOT detected. There is no laboratory evidence of HIV infection. HIV Negative Performed at: ??[facility] [employer] ??[id number] [employer]illing Machine Set Up Operator: Tomer Pearce PhD, Phone: ??[phone] Specimen (Source)Anatomical Location / LateralityCollection Method / Volume Collection TimeReceived Time08/24/2025 3:29 PM EDT1 3:35 PM EDT Narrative [facility] - 08/25/2025 5:07 AM EDT Authorizing ProviderResult TypeResult StatusCorey Miguel DOLAB BLOOD ORDERABLES Final ResultPerforming OrganizationAddRiddle Hospitalty/State/ZIP CodePhone Number [facility] * (ABNORMAL) HCV ANTIBODY RFX TO QUANT PCR (08/24/2025 3:29 PM EDT)Component ValueRef RangeTest MethodAnalysis TimePerformed AtPathologist SignatureHCV AB Reactive(A)Non ReactiveTBHHEPATITIS C QUANTITATIONHCV Not Detected. IU/mLTBH HCV OYE73QPF.TBHTEST INFORMATION:Comment.TBHComment: The quantitative range of this assay is 15 IU/mL to 100 million IU/mL. INTERPRETATION:Comment.TBHComment: Positive HCV antibody screen without the presence of HCV RNA is consistent with a resolved past infection or a false positive HCV antibody. Consider repeat testing after one month. Performed at: ??[employer] ??[id number] [employer] Machine Set Up Operator: Tomer Pearce PhD, Phone: ??[phone] Performed at: ??BN - [facility] [address] ??[id number] [employer]illing Machine Set Up Operator: Price Montana MD, Phone: ??[phone] Specimen (Source)Anatomical Location / LateralityCollection Method / Volume Collection TimeReceived Time08/24/2025 3:29 PM EDT1 3:35 PM EDT Narrative [facility] - 08/27/2025 6:08 PM EDT Authorizing ProviderResult TypeResult StatusSwapnil PASCAL BLOOD ORDERABLES Final ResultPerforming OrganizationAddressCity/State/ZIP CodePhone Number [facility] * (ABNORMAL) MLR HEMOGLOBIN A1C (08/24/2025 3:29 PM EDT)ComponentValueRef Range Test MethodAnalysis TimePerformed AtPathologist SignatureGLYCOHEMOGLOBIN A1C 4.0(L)4.5 - 6.2 %TBHComment: ADA RECOMMENDED LIMIT 4.0 - 6.0 ADA THERAPEUTIC TARGET < 7.0 ACTION SUGGESTED > 7.0 ESTIMATED AVERAGE MAYSCKP09vv/dLTBHSpecimen (Source)Anatomical Location / LateralityCollection Method / VolumeCollection TimeReceived Time08/24/2025 3:29 PM EDT1 3:35 PM EDT Narrative [facility] - 08/24/2025 4:01 PM EDT Authorizing ProviderResult TypeResult StatusCorecomfort Rivera DOCLINISYNCFinal Result Performing OrganizationAddressCity/State/ZIP CodePhone Number [facility] * ALL TYPE AND SCREEN (08/24/2025 3:29 PM EDT)ComponentValueRef RangeTest Method Analysis TimePerformed AtPathologist SignatureBLOOD TYPEO PositiveTBHANTIBODY SCREENNEGATIVETBHSpecimen (Source)Anatomical Location / LateralityCollection Method / VolumeCollection TimeReceived Time08/24/2025 3:29 PM EDT1 3:35 PM EDT Narrative [facility] - 08/24/2025 10:20 PM EDT [facility] [place] , ?? Authorizing ProviderResult TypeResult StatusCorecomfort Rivera DOCLINISYNCFinal Result Performing OrganizationAddressCity/State/ZIP CodePhone Number [facility] * (ABNORMAL) ALL RUBELLA IGG AB (08/24/2025 3:29 PM EDT)ComponentValueRef Range Test MethodAnalysis TimePerformed AtPathologist SignatureRUBELLA ANTIBODIES, IGG<0.90(A)Immune >0.99 indexTBHComment: Non-immune <0.90 ?Equivocal ??0.90 - 0.99 Immune >0.99 Performed at: ??[facility] - [facility] [address] ??[id number] [employer]illing Machine Set Up Operator: Tomer Pearce PhD, Phone: ??[phone] Specimen (Source)Anatomical Location / LateralityCollection Method / Volume Collection TimeReceived Time08/24/2025 3:29 PM EDT1 3:35 PM EDT Narrative [facility] - 08/27/2025 6:08 PM EDT Authorizing ProviderResult TypeResult StatusCorey Miguel DOCLINISYNCFinal Result Performing OrganizationAddressCity/State/ZIP CodePhone Number [facility] * (ABNORMAL) ALL CBC WITH AUTO DIFF (08/24/2025 3:29 PM EDT)ComponentValueRef RangeTest MethodAnalysis TimePerformed AtPathologist SignatureTBH WBC8.24.0 - 11.0 10 3/uLTBHTBH RBC4.00(L)4.20 - 5.40 10 6/uLTBHTBH HGB12.812.0 - 16.0 g/dL TBHTBH HCT35.8(L)36.0 - 48.0 %TBHTBH MCV89.581.0 - 99.0 fLTBHTBH MCH32.026.7 - 34.0 pgTBHTBH MCHC35.8(H)29.9 - 35.2 g/dLTBHTBH RDW13.511.0 - 15.0 %TBHTBH PLT 102493 - 450 10 3/uLTBHTBH MPV9.3(L)9.5 - 13.5 fLTBHNEUTROPHILS PERCENT AUTO 76.4(H)43.0 - 75.0 %TBHLYMPHOCYTES PERCENT AUTO15.3(L)20.5 - 60.0 %TBH MONOCYTES PERCENT AUTO6.51.7 - 12.0 %TBHTBH EO %0.90.9 - 7.0 %TBHBASOPHILS PERCENT AUTO0.40.2 - 2.0 %TBHIMMATURE GRANULOCYTES PCT AUTO0.50.0 - 0.5 %TBH NEUTROPHILS ABSOLUTE AUTO6.21.4 - 6.5 10 3/uLTBHLYMPHOCYTES ABSOLUTE AUTO1.3 1.2 - 3.8 10 3/uLTBHMONOCYTES ABSOLUTE AUTO0.50.3 - 0.8 10 3/uLTBHTBH EO #0.1 0.0 - 0.7 10 3/uLTBHBASOPHILS ABSOLUTE AUTO0.00.0 - 0.1 10 3/uLTBHIMMATURE GRANULOCYTES ABS AUTO0.04(H)0.00 - 0.03 10 3/uLTBHSpecimen (Source)Anatomical Location / LateralityCollection Method / VolumeCollection TimeReceived Time 08/24/2025 3:29 PM EDT1 3:35 PM EDT Narrative [facility] - 08/24/2025 3:45 PM EDT Authorizing ProviderResult TypeResult StatusCorecomfort Rivera DOCLINISYNCFinal Result Performing OrganizationAddressCity/State/ZIP CodePhone Number [facility] * URINE CULTURE, ROUTINE (08/24/2025 3:08 PM EDT)ComponentValueRef RangeTest MethodAnalysis TimePerformed AtPathologist SignatureURINE CULTURE, ROUTINE ??Urine Culture, Routine TBHURINE CULTURE, ROUTINENo growthTBHURINE CULTURE, ROUTINEPerformed at: - [facility] MariettaTBHURINE CULTURE, [id number] [place], [place] [id number] URINE CULTURE, ROUTINELab Director: Tomer Pearce PhD, Phone: [phone] Specimen (Source)Anatomical Location / LateralityCollection Method / Volume Collection TimeReceived Time08/24/2025 3:08 PM EDT1 3:35 PM EDT Narrative [facility] - 08/25/2025 11:07 PM EDT Authorizing ProviderResult TypeResult StatusCorey Miguel DOLAB BLOOD ORDERABLES Final ResultPerforming OrganizationAddressCity/State/ZIP CodePhone Number [facility] * TBH DRUG SCREEN RAPID (URINE) (08/24/2025 3:08 PM EDT)ComponentValueRef Range Test MethodAnalysis TimePerformed AtPathologist SignatureCANNABINOID SCREEN URINENEGATIVENEGATIVETBHPHENCYCLIDINE SCREEN URINENEGATIVENEGATIVETBHCOCAINE SCREEN URINENEGATIVENEGATIVETBHMETHAMPHETAMINES SCREEN URINENEGATIVENEGATIVE TBHOPIATE SCREEN URINENEGATIVENEGATIVETBHAMPHETAMINE SCREEN URINENEGATIVE NEGATIVETBHBENZODIAZEPINES SCREEN URINENEGATIVENEGATIVETBHTRICYCLIC ANTIDEPRESSANT URINENEGATIVENEGATIVETBHMETHADONE SCREEN URINENEGATIVENEGATIVE TBHBARBITURATES SCREEN URINENEGATIVENEGATIVETBHOXYCODONE SCREEN URINENEGATIVE NEGATIVETBHBUPRENORPHINE SCREEN URINENEGATIVENEGATIVETBHComment: DRUG CLASS TEST SYSTEM CUT-OFF CONCENTRATIONS ARE FOLLOWS: AMP (Amphetamine): 500 ng/mL BAR (Barbiturates): 200 ng/mL BZO (Benzodiazepines): 150 ng/mL BUP (Buprenorphine): 10 ng/mL JAKOB (Cocaine): 150 ng/mL mAMP (Methamphetamine): 500 ng/mL MTD (Methadone): 200 ng/mL OPI (Opiates): 100 ng/mL OXY (Oxycodone): 100 ng/mL PCP (Phencyclidine): 25 ng/mL THC (Cannabinoids): 50 ng/mL TCA (Trycyclic Antidepressants): 300 ng/mL Specimen (Source)Anatomical Location / LateralityCollection Method / Volume Collection TimeReceived Time08/24/2025 3:08 PM EDT1 3:35 PM EDT Narrative [facility] - 08/24/2025 3:54 PM EDT Authorizing ProviderResult TypeResult StatusCorey Miguel DOCLINISYNCFinal Result Performing OrganizationAddressty/State/ZIP CodePhone Number [facility] * (ABNORMAL) POCT , urine manually resulted [...] Dwyer MD Authorizing ProviderResult TypeResult StatusCorey Miguel DOIMG OB US PROCEDURES Final Result * Pap Smear (06/17/2022 12:00 AM EDT)Specimen (Source)Anatomical Location / LateralityCollection Method / VolumeCollection TimeReceived TimeSwabCervical swab / Unknown Narrative Authorizing ProviderResult TypeResult StatusHistorical Provider CATHY CYTOLOGY ORDERABLESFinal ResultPerforming OrganizationAddressCity/State/ZIP CodePhone Number EXTERNAL LAB from Last 3 Months or Most Recently Relevant to Health Maintenance Insurance
--- OUTSIDE RECORDS SUMMARY | 2025-09-22 19:55 | XMS_ITS | Clinical Summary ---
Author Organization [facility] Address [address] [place] [address] Phone Care Team Providers Care Workplace Relations Adviser Name Role Phone Joanne López APRN-TIBURCIO Primary Care Provid er Allergies Active AllergyReactionsCriticalityNoted DateCommentsBee Venom Protein (Honey Bee)RphhsgydwyeIgzr16/30/2024enicillinsHeadache,Nausea/vyasnjkw79/30/2024 SulfamethoxazoleHeadache,Rash,Nausea/pnwlprayJss06/30/2024 Medications MedicationSigDispense QuantityRefillsLast FilledStart DateEnd DateStatus methadone (Dolophine) 10 mg/mL solution Take by mouth.Active albuterol 90 mcg/actuation aerosol powdr breath activated inhaler Inhale 2 puffs every 4 hours.Active Active Problems ProblemNoted DateDiagnosed DateChest pain11/27/2023ipolar ejayfklcug16/30/2024 Anemia affecting gfksviqcy51/30/2024epression affecting , antepartum 11/27/2023epression, major, recurrent, uvnzzyco29/30/2024History of heroin abuse11/27/2023Iron deficiency cbngou0411/27/2023Low back pain11/27/2023Opioid use disorder, moderate, in early remission, on maintenance therapy, dependence 11/27/2023ongenital heart disease, maternal, sjbmfmosgm98/30/2024ongenital pulmonary valve jctatpv3111/27/2023onstipation during in third wewqnvlqi03/30/3549Ihvxowkjntou80/30/2024Generalized anxiety /30/2024 Posttraumatic stress /30/2024rior with congenital cardiac defect, keioyrabak75/30/2024ulmonic valve rdkylrn2311/27/20233825Vlwcxmeyv19/30/2024 Shortness of dgdxxb2111/27/2023Substance abuse affecting , antepartum 11/27/2023Thrombocytopenia complicating /30/2024Tobacco smoking affecting shlfmzoyp70/30/2024Light tobacco smoker <10 cigarettes per day 11/27/2023ECG grqgtxid52/30/2024ack pain11/27/2023hronotropic incompetence 11/27/2023Encounter for IUD ynxhelsud27/30/2024 Encounters DateTypeDepartmentCare KoycNpudxcdzysz88/07/2025Orders Only [facility] [address] [place] [address] Canelo Allison DO from Last 3 Months Immunizations ImmunizationAdministration DatesNext DueHepatitis B vaccine, 19 yrs and under (RECOMBIVAX, ENGERIX)05/14/2001,09/18/2000,06/08/1999Tdap vaccine, age 7 year and older (BOOSTRIX, ADACEL)01/21/2019,05/26/2017 Family History Medical HistoryRelationNameCommentsHypertensionFathercardiac abnormalityFather HypertensionMothercardiac abnormalityMotherRelationNameStatusCommentsFather Mother Social History Tobacco UseTypesPacks/DayYears UsedDateSmoking Tobacco: Every DayCigarettes Alcohol UseStandard Drinks/WeekCommentsNever0 (1 standard drink = 0.6 oz pure alcohol)CommentsUnknownSex and Gender InformationValueDate RecordedSex Assigned at BirthNot on fileLegal NsnKrkmmp85/26/2022 7:39 AM ESTGender Identity Not on fileSexual OrientationNot on file Last Filed Vital Signs Vital SignReadingTime TakenCommentsBlood Apmynvlw366/7003 10:15 AM EDT Uzagr3610 10:15 AM EDTTemperature--Respiratory Rate--Oxygen Saturation-- Inhaled Oxygen Concentration--Uaqrtk24.1 kg (128 lb)01/15/2023 10:15 AM EDT Mndfqu386.9 cm (5' 1 )01/15/2023 10:15 AM EDTBody Mass Index24.19001/15/2023 10:15 AM EDT Plan of Treatment Health MaintenanceDue DateLast DoneCommentsLipid Panel1993MMR Vaccines (1 of 1 - Standard series)1994Hepatitis A Vaccines (1 of 2 - Risk 2-dose series)2012Pneumococcal Vaccine: Pediatrics and At-Risk Adult Patients (1 of 2 - PCV)2012HPV/Zlrlmf2908/29/2014HPV Vaccines (1 - 3-dose standard series)2020Cervical Cancer Elnfdilfv52/21/2022ap Smear03/18/2022 03/18/2019Influenza Vaccine (#1)5COVID-19 Vaccine (2 - 2024- season) /03/2021Yearly Adult Dfgdfbjp51DTaP/Tdap/Td Vaccines (3 - Td or Tdap)9001/21/2019, 05/26/2017Zoster Vaccines (1 of 2)2043Hepatitis B ZwjrowfcTqgmveiib48/17/2001, 09/18/2000, 06/08/1999HIV AsknkebwrRiowmxtev78/29/2022, 05/04/2021, 12/13/2020, Additional history exists HIB VaccinesAged OutNo longer eligible based on patient's age to complete this topicIPV VaccinesAged OutNo longer eligible based on patient's age to complete this topicMeningococcal VaccineAged OutNo longer eligible based on patient's age to complete this topicRotavirus VaccinesAged OutNo longer eligible based on patient's age to complete this topic Procedures Procedure NamePriorityDate/TimeAssociated DiagnosisCommentsNON- HIE BHCG QUANT Lagtwyf1707/05/2025 3:25 PM EDT NON- HIE BFSEVmbszkb62/07/2025 3:25 PM EDT NON- HIE PDKMcabghn33/07/2025 3:25 PM EDT NON-[facility] HIE CBC W/ AUTO FUJIRbfvbnq78/07/2025 3:25 PM EDT NON-UH HIE UA WITH CULT IRWPRyhwnla27/07/2025 3:25 PM EDT HIV 1/2 ANTIGEN/ANTIBODY SCREEN WIH REFLEX TO LZDLDLCZWUCZZkunpgr51/29/2022 10:43 AM EDT CONVERTED COP BREAKER LRCYIPDITgrliia36/21/2019 12:00 AM EDT from Last 3 Months or Most Recently Relevant to Health Maintenance Results * NON-[facility] HIE UA WITH CULT RFLX (07/05/2025 3:25 PM EDT)ComponentValueRef Range Test MethodAnalysis TimePerformed AtPathologist SignatureCOBALT REHABILITATION [facility]- HIE UA Spec DescClean CatchGRAND LAKE [facility] HIE UA ColorLight-Yellow YellowMCCULLOUGH-HYDE MEMORIAL HOSPITALComment:Microscopic readings are only performed on those samples that meet specific criteria set forth by [facility].NON-[facility] HIE UA ClarityClearClearGRAND LAKE [facility]INT [facility] HIE UA Spec Grav1.0251.005 - 1.030[facility] HIE UA pH6.55.0 - 9.0[facility] UA ProteinNegativeNegative mg/dLGRAND LAKE JO[facility]NSHIP [facility] HIE UA Glucose NegativeNegative mg/dLGRAND LAKE [facility]NSHIP [facility] HIE UA KetonesNegative Negative mg/dLGRAND LAKE [facility]NSH[facility] HIE UA BiliNegativeNegative mg/dLMERCY HEALTH ANDERSON HOSPITALE UA BloodNegativeNegative mg/dL [facility] HIE UA NitriteNegativeNegative mg/dLMERCY HEALTH ANDERSON HOSPITALE UA UrobilinogenNegativeNegative mg/dLMERCY HEALTH ANDERSON HOSPITALE UA Leuk EstNegativeNegative CD:[id number] HOSPITALpecimen (Source)Anatomical Location / Laterality Collection Method / VolumeCollection TimeReceived TimeOKLAHOMA FORENSIC CENTER [facility] Lab- Urine 07/05/2025 3:25 PM EDT Narrative Authorizing ProviderResult TypeResult StatusCanelo PASCAL BLOOD ORDERABLES Final ResultPerforming OrganizationAddressCity/State/ZIP CodePhone Number [facility] [address] [place] [phone], [place] * (ABNORMAL) NON-[facility] HIE CBC w/ Auto Diff (07/05/2025 3:25 PM EDT)ComponentValue Ref RangeTest MethodAnalysis TimePerformed AtPathologist SignatureCOBALT REHABILITATION [facility] HOSPITAL-[facility]ERE WBC5.34.0 - 11.0 E9/LFTOGUS VA [facility] HIE RBC4.2(L)4.3 - 5.9 E12/LFTOGUS VA MEDICAL [facility]ENTER HIE HGB12.912.0 - 16.0 gm/dLMERCY HEALTH ANDERSON HOSPITALE HCT36.134.0 - 46.0 %[facility] NON- HIE RDW13.410.9 - 14.2 %[facility] HIE MCH30.5 27.0 - 34.0 pgFTOGUS VA MEDICAL CENTER HIE MCHC35.831.4 - 36.0 gm/dL [facility] HIE MCV85.480.0 - 100.0 [facility] HIE MPV7.76.4 - 10.8 [facility] Comment:Peripheral smear review performed.NON-UH HIE SBKAFZWX184.0150.0 - 500.0 E9/LFGREEN CROSS HOSPITALComment:Peripheral smear review performed.NON-UH HIE NEUTRO AUTO70.436.0 - 75.0 %[facility] NON- HIE LYMPH AUTO18.514.0 - 50.0 %[facility] HIE MONO AUTO9.54.0 - 14.0 %[facility] HIE EOS AUTO1.10.0 - 8.0 %[facility] HIE BASOPHIL AUTO0.50.0 - 2.0 %[facility] NEUTRO ABSOLUTE3.72.0 - 7.5 E9/LFTOGUS VA MED[facility]ENTER HIE LYMPH ABSOLUTE1.01.0 - 4.0 E9/LFTOG[facility] HIE MONO ABSOLUTE0.50.2 - 1.0 E9/LFSUMMA HEALTH AKRON [facility]AMPUS HIE EOS ABSOLUTE0.10.0 - 0.5 E9/LFTOGUS VA MEDICAL [facility]ENTER HIE BASOPHIL ABSOLUTE0.00.0 - 0.2 E9/LFGOOD SAMARITAN HOSPITALpecimen (Source) Anatomical Location / LateralityCollection Method / VolumeCollection Time Received TimeOKLAHOMA FORENSIC C[facility] Lab- Blood07/05/2025 3:25 PM EDT Narrative Authorizing ProviderResult TypeResult StatusCanelo PASCAL BLOOD ORDERABLES Final ResultPerforming OrganizationAddressCity/State/ZIP CodePhone Number [facility] [address] [place] [address], * (ABNORMAL) NON- HIE BMP (07/05/2025 3:25 PM EDT)ComponentValueRef RangeTest MethodAnalysis TimePerformed AtPathologist SignatureMEDICAL BEHAVIORAL HOSPITALE GLUCOSE ZPW4273 - 199 mg/dLMERCY HEALTH ANDERSON HOSPITALE ZLG092 - 21 mg/dLMERCY HEALTH ANDERSON HOSPITALE CREATININE0.70.5 - 1.3 mg/dLMEMORIAL HOSPITAL BUN/CREAT RDRDE4866 - 20 No UnitsMERCY HEALTH KINGS [facility]ILLS HOSPITALE CALCIUM LVL9.58.9 - 11.1 mg/dLGRAND LAKE [facility] HIE SODIUM TXT888(L)135 - 145 mmol/LFTOGUS VA MEDICAL [facility]ENTER HIE POTASSIUM LVL4.33.5 - 5.3 mmol/LFTOGUS VA MEDICAL [facility]ENTER HIE CHLORIDE 497464 - 111 mmol/LFTOGUS VA MEDICAL CENTER HIE LU02318 - 31 mmol/L [facility]ALE AGAP96 - 16 mEq/LFGOOD SAMARITAN HOSPITALpecimen (Source)Anatomical Location / LateralityCollection Method / VolumeCollection TimeReceived TimeOKLAHOMA FORENSIC [facility] Lab- Blood07/05/2025 3:25 PM EDT Narrative Authorizing ProviderResult TypeResult StatusCanelo Allison DOLAB BLOOD ORDERABLES Final ResultPerforming OrganizationAddressCity/State/ZIP CodePhone Number [address] [address], [place] * NON-[facility] HIE eGFR (07/05/2025 3:25 PM EDT)ComponentValueRef RangeTest Method Analysis TimePerformed AtPathologist SignatureNON- HIE XSZE792>=59 mL/min/1.73 g7TXFBRMTUSCARAWAS HOSPITALpecimen (Source)Anatomical Location / LateralityCollection Method / VolumeCollection TimeReceived TimeOKLAHOMA [facility]ENSIC [facility] Lab- Blood07/05/2025 3:25 PM EDT Narrative Authorizing ProviderResult TypeResult StatusCanelo Allison DOLAB BLOOD ORDERABLES Final ResultPerforming OrganizationAddressCity/State/ZIP CodePhone Number [address] [address], [place] * (ABNORMAL) NON-[facility] HIE BhCG Quant (07/05/2025 3:25 PM EDT)ComponentValueRef RangeTest MethodAnalysis TimePerformed AtPathologist SignatureNON-UH HIE BETA HCG QNT79,656(H)1 - 3 mIU/mLMCCULLOUGH-HYDE MEMORIAL HOSPITALComment:'F NON < 1 - 3'' 0.2 - 1 WEEK = 5 TO 50'' 1 - 2 WEEKS = 50 - 500'' 2 - 3 WEEKS = 100 - 5000'' 3 - 4 WEEKS = 500 - 09130'' 4 - 5 WEEKS = 1000 - 35602'' 5 - 6 WEEKS = 90320 - 509697'' 6 - 8 WEEKS = 97935 - 975448'' 8 - 12 WEEKS = 25182 - 653786'Specimen (Source)Anatomical Location / LateralityCollection Method / VolumeCollection TimeReceived TimeOKLAHOMA [facility]ENSIC [facility] Lab- Blood07/05/2025 3:25 PM EDT Narrative Authorizing ProviderResult TypeResult StatusCaenlo Allison DOLAB BLOOD ORDERABLES Final ResultPerforming OrganizationAddressCity/State/ZIP CodePhone Number [place] [phone], [place] * HIV 1/2 Antigen/Antibody Screen with Reflex to Confirmation (01/24/2022 10:43 AM EDT)ComponentValueRef RangeTest MethodAnalysis TimePerformed AtPathologist SignatureHIV 1 and 2 ScreenNONREACTIVENONREACTIVELANKENAU MEDICAL CENTER LABComment: HIV Ag/Ab screen is performed using the Siemens Atellica HIV Ag/Ab Combo assay which detects the [...] Narrative Authorizing ProviderResult TypeResult StatusVincent E Hawaen SPECIAL NEEDS CAREGIVER-CNPLAB BLOOD ORDERABLESFinal ResultPerforming OrganizationAddressCity/State/ZIP CodePhone Number [facility] [address] [place] [address] * CONVERTED COP BREAKER CYTOLOGY (03/18/2019 12:00 AM EDT)ComponentValueRef RangeTest MethodAnalysis TimePerformed AtPathologist SignaturePathology Report ? Date of Procedure: ??03/18/2019 ? Pathologist: [facility], Cytology Date Reported: 03/28/2019 Date Received: ??03/18/2019 [...] This specimen has been analyzed by the ThinPrep Imaging System ([employer].), an automated imaging and review system, which assists the laboratory in evaluating cells on ThinPrep Pap tests. Following automated imaging, selected cutler from every slide were reviewed by a human performance consultant and/or pathologist. Electronically Signed Out By [facility], Cytology//NKM By the signature on this report, [...] THINPREP PAP CERVICAL Reflex - Ascus only [facility] Department of Pathology [address] [place] [address] COPATHCONVERTED FINAL DIAGNOSISA. ??THINPREP PAP CERVICAL Reflex [...] testing. See Pap test interpretation above. ? [facility] COPATHCONVERTED DIAGNOSIS COMMENTThis specimen has been analyzed by the ThinPrep Imaging System ([employer].), an automated imaging and review system, which assists the laboratory in evaluating cells on ThinPrep Pap tests. Following automated imaging, selected cutler from every slide were reviewed by a human performance consultant and/or pathologist. [facility] COPATHCONVERTED FINAL REPORT PDF LINK TO COPY AND PASTE \[id number] MEDICAL [facility]ENTER COPATHSpecimen (Source) Anatomical Location / LateralityCollection Method / VolumeCollection Time Received TimeTPP CERVICAL - Exclude Pkazvwej20 1:33 PM EDT Narrative Authorizing ProviderResult TypeResult StatusLulu Nilson MORGAN CYTOLOGY ORDERABLESFinal ResultPerforming OrganizationAddressCity/State/ZIP CodePhone Number [facility] COPATH [address] [place] [address] from Last 3 Months or Most Recently Relevant to Health Maintenance Insurance Care Teams Team MemberRelationshipSpecialtyStart DateEnd Date Joanne López, SPECIAL NEEDS CAREGIVER-REWINDER OPERATOR HELPER PCP - [facility]01/15/23
--- OUTSIDE RECORDS SUMMARY | 2025-09-22 19:55 | XMS_ITS ---
Author Organization [facility] Source Produ ction (ClinicalSummary Clone) Address Unknown Care Team Providers Care Patient Registration Supervisor Name Role Phone Unavailable Primary Care Physician Unavailab le Results * [UNITY] ANEUPLOIDY NIPT Performed by: [employer] Component Value Range Date Fraction 7.0% 08/31/2025 05:40 am UTCRh(D) NIPTRhD RBZCTYOO97/03/2025 05:40 am UTCSex Chromosome AneuploidyNOT LUXXZOBA32/03/2025 05:40 am UTCMonosomy XLOW RISK <1 in 05:40 am UTCTrisomy 13LOW RISK <1 in 05:40 am UTCTrisomy 18LOW RISK <1 in 05:40 am UTCTrisomy 21LOW RISK <1 in 05:40 am UTCFetal ZdkKSPGOD79/03/2025 05:40 am UTCPregnancy VayczyhdaJTRQYKMPH76/03/2025 05:40 am UTCFor detailed report, see PDFSee PDF 08/31/2025 05:40 am UTC110/31/2024 05:40 am UTC Social History Observation Value Start Date End Date
--- OUTSIDE RECORDS SUMMARY | 2025-09-22 19:55 | XMS_ITS | Clinical Summary ---
Author Organization [facility] Address [address] [place] [address] Care Team Providers Care Hand Developer Name Role Phone Unavailable Primary Care Provider Unavailabl e Allergies Active AllergyReactionsCriticalityNoted LaklPwwhdipkTvxuycxzycHfccdwh93/08/2016 Sulfa (Sulfonamide Antibiotics)Bqhcsgd6802/04/2016 Medications No known medications Active Problems No known active problems Family History Medical HistoryRelationCommentsHeartFatherMI around age 50HypertensionFather HypertensionMotherRelationStatusCommentsFatherMother Social History Tobacco UseTypesPacks/DayYears UsedDateSmoking Tobacco: Every DayCigarettes0.511 Alcohol UseStandard Drinks/WeekCommentsYes6 (1 standard drink = 0.6 oz pure alcohol)[facility] UtilitiesAnswerDate RecordedIn the past 12 months has the [employer], gas, oil, or water [employer] threatened to shut off services in your home?No 12/14/2023Social Connection and Isolation PanelAnswerDate RecordedIn a typical week, how many times do you talk on the phone with family, friends, or neighbors?More than three times a week12/14/2023How often do you get together with friends or relatives?More than three times a week12/14/2023How often do you attend orthodoxy or jewish services?Patient qbmojvff88/16/2024Do you belong to any clubs or organizations such as orthodoxy groups, unions, fraternal or athletic groups, or school groups?No12/14/2023How often do you attend meetings of the clubs or organizations you belong to?Patient yrsmvvvd03/16/2024Are you , , , , never , or living with a partner?Patient /16/2024UDIT-CAnswerDate RecordedQ1: How often do you have a drink containing alcohol?Patient pqurvhck95/16/2024Q2: How many drinks containing alcohol do you have on a typical day when you are drinking?Patient does not drink12/14/2023Q3: How often do you have six or more drinks on one occasion? Patient zidoaprb87/16/2024Overall Financial Resource Strain (CARDIA)AnswerDate RecordedHow hard is it for you to pay for the very basics like food, housing, medical care, and heating?Patient ytfjfasn58/16/2024[facility] - Occupational Stress QuestionnaireAnswerDate [...] steady place to sleep or slept in legacy healther (including now)?No4CommentsUnknownSex and Gender InformationValueDate RecordedSex Assigned at QvcabZrniwi49/16/2024 4:08 PM EDT Legal FkpFqepex92/02/2012 8:33 AM ESTGender ZhihxqzmHntcij29/16/2024 4:08 PM EDT Sexual EesakokpuijVpwvcsrh88/16/2024 4:08 PM EDTOccupationIndustryJob Start Date Job End DateUnemployedNot on fileNot on fileNot on file Last Filed Vital Signs Vital SignReadingTime TakenCommentsBlood Ohdkxkvk794/7608/22/2016 10:09 AM EDT Uchlt888408/22/2016 10:09 AM EDTTemperature--Respiratory Vpsj6141 10:09 AM EDTOxygen Ifxqhfppne72%08/22/2016 10:09 AM EDTInhaled Oxygen Concentration-- Yzuwxc71.4 kg (131 lb)08/22/2016 10:09 AM QLKThqzqx585 cm (5' 3 )08/22/2016 10:09 AM EDTBody Mass Index23.211 10:09 AM EDT Plan of Treatment Health MaintenanceDue DateLast DoneCommentsAnxiety Ayhjaiqqu99/01/2011Depression Wkekqpqek69/01/2011HIV Ovfdwsdwh56/01/2011Pneumococcal Vaccine (1 of 2 - PCV) 2012Cervical Cancer Xtkqnxaey37/01/2014HPV Vaccine (1 - 3-dose SCDM series)2020Covid-19 Vaccine (2 - 2024- season) Influenza Vaccine (#1)2025DTaP,Tdap,Td Vaccine (3 - Td or Tdap)01/21/2029 01/21/2019, 05/26/2017Hepatitis B JcpbjcsQpehbcsct80/17/2001, 09/18/2000, 06/08/1999Hepatitis C EqmcmsbbpKfbvhpdnv63/01/2019, 01/16/2019 [place] [address]
--- OUTSIDE RECORDS SUMMARY | 2025-09-22 19:55 | XMS_ITS | Encounter Summary ---
Author Organization [facility] Address [address] [place] [address] Care Team Providers Care Security Messenger Name Role Phone Unavailable Primary Care Provider Unavailabl e Encounter Details DateTypeDepartmentCare Team (Latest Contact Info)Jdsongfencn88/25/2025amboo flowsheet NOMNancy FRANCIS [address] [place] [address] Joanne Soto PA [address] [place], [facility] Social History Tobacco UseTypesPacks/DayYears UsedDateSmoking Tobacco: NeverSmokeless Tobacco: NeverAlcohol UseStandard Drinks/WeekCommentsNever0 (1 standard drink = 0.6 oz pure alcohol)Estimated Date of CnaesqvqZhfdsvnhGbb79/03/2026ased on UltrasoundSex and Gender InformationValueDate RecordedSex Assigned at BirthNot on fileLegal MxhOmlfsu42/15/2023 8:13 PM EDTGender IdentityNot on fileSexual OrientationNot on filedocumented as of this encounter Plan of Treatment DateTypeDepartmentCare Team (Latest Contact Info)Ixohxiavada71/23/2025 1:00 PM ESTAncillary Procedure [facility] FRANCIS [address] [place] [address] 10/20/2025 2:10 PM ESTRoutine [facility] FRANCIS [address] [place] [address] Swapnil Rivera DO [address] [address] documented as of this encounter Visit Diagnoses Not on filedocumented in this encounter
== END 2025-09-22 19:52 | disposition home or self-care (01) ==
LOC: LAB 19:51
PROVIDERS: Visit Provider Physician Assistant
DX: Z01.419 Encounter for gynecological examination (general) (routine) without abnormal findings (principal)
CPT/HCPCS: 88175